=== PATIENT | male | born 1955 | race Caucasian/White ===

== ENCOUNTER 2017-09-25 11:06 | Emergency (ER) | payer BC ==
[2017-09-25 11:46] LABS: ADD MAN DIFF? NO
[2017-09-25 11:51] LABS: BASO # 0.1 x10^3/uL (0.0-0.2); BASO % 1 % (0-3); EOS # 0.2 x10^3/uL (0.0-0.7); EOS % 2 % (0-3); HEMATOCRIT 44.3 % (39.0-53.0); HEMOGLOBIN 14.6 g/dL (13.0-17.5); LYMPH % 21 % (24-48); MEAN CORPUSCULAR HEMOGLOBIN 29 pg (25-35); MEAN CORPUSCULAR HGB CONC 33 g/dL (31-37); MEAN CORPUSCULAR VOLUME 89 fL (79-100); MONO % 11 % (0-9); NEUT # 6.3 x10^3uL (1.8-7.7); NEUT % 65 % (31-73); PLATELET COUNT 172 x10^3/uL (140-400); RED CELL DISTRIBUTION WIDTH 14.3 % (11.5-14.5); WHITE BLOOD COUNT 9.7 x10^3/uL (4.0-11.0)
[2017-09-25 12:13] LABS: ANION GAP 11 (6-14); BLOOD UREA NITROGEN 8 mg/dL (8-26); BUN/CREATININE RATIO 9 (6-20); CALCIUM 8.7 mg/dL (8.5-10.1); CARBON DIOXIDE 26 mmol/L (21-32); CHLORIDE 105 mmol/L (98-107); CREATININE 0.9 mg/dL (0.7-1.3); GFR 86.1; GLUCOSE 91 mg/dL (70-99); POTASSIUM 3.7 mmol/L (3.5-5.1); SODIUM 142 mmol/L (136-145)
[2017-09-25 12:18] LABS: ALBUMIN 3.9 g/dL (3.4-5.0); ALBUMIN/GLOBULIN RATIO 0.9 (1.0-1.7); ALK PHOS 57 U/L (46-116); ALT (SGPT) 33 U/L (16-63); AST (SGOT) 22 U/L (15-37); TOTAL BILIRUBIN 0.7 mg/dL (0.2-1.0); TOTAL PROTEIN 8.1 g/dL (6.4-8.2)
[2017-09-25 12:18] LABS: THYROID STIM HORMONE (TSH) 3.029 uIU/mL (0.358-3.74)
[2017-09-25 18:12] LABS: HEMOGLOBIN A1C 7.6 % (4.8-5.6)
== END 2017-09-25 14:07 | disposition home or self-care (01) ==
LOC: ER 11:06
DX: M79.89 Other specified soft tissue disorders (principal); Z71.1 Person with feared health complaint in whom no diagnosis is made (principal); R41.4 Neurologic neglect syndrome; G98.8 Other disorders of nervous system; E11.9 Type 2 diabetes mellitus without complications
CPT/HCPCS: 36415; 80053; 83036; 84443; 85025; 99284

== ENCOUNTER 2021-05-11 07:42 | Emergency (ER) | payer OTHER ==
[~2021-05-11] VITALS: Ht 175.3 cm; Wt 73.6 kg
[~2021-05-11 07:42] MED LIST: ASPI-886 PO; FLUO20CA20 PO; FLUO20SO2 PEG; GABA300C18 PO; HYDR-2759 PO; INSU100I32 SQ; INSU100I46 SQ; PRED20TA PO
--- NOTE | 2021-05-11 08:09 | PHYS DOC ---
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 Sue said he's no drug dealer." States "the hydrocodone helps with my breathing and calms me down." Patient reports he has been short of breath which has been constant for the past 2 months, has not increased or decreased in severity. Unsure if he's been re-exposed to covid. EMR was reviewed and patient was prescribed 36 tablets of hydrocodone on April 11 upon hospital discharge. Review of Systems: Review of Systems: Constitutional: Denies fever or chills or lack of taste or smell or anorexia Eyes: Denies change in visual acuity. [] HENT: Denies nasal congestion or sore throat. [] Respiratory: Denies cough or hemoptysis Cardiovascular: Denies chest pain or edema. [] GI: Denies nausea, vomiting, or diarrhea. [] : Denies dysuria or hematuria Musculoskeletal: Denies joint pain or leg swelling Integument: Denies rash or diaphoresis Neurologic: Denies headache, focal weakness or sensory changes. [] Endocrine: Denies polyuria or polydipsia. [] Lymphatic: Denies swollen glands. [] Psychiatric: Denies depression or anxiety. [] Heart Score: C/O Chest Pain: No Risk Factors: Risk Factors: DM, Current or recent (<one month) smoker, HTN, HLP, family history of CAD, obesity. Risk Scores: Score 0 - 3: 2.5% MACE over next 6 weeks - Discharge Home Score 4 - 6: 20.3% MACE over next 6 weeks - Admit for Clinical Observation Score 7 - 10: 72.7% MACE over next 6 weeks - Early Invasive Strategies Allergies: Allergies: Allergies Coded Allergies Type Severity Reaction Last Updated Verified I S O L A T I O N *CONTACT* Allergy Unknown 01/11/21 Yes No Known Medication Allergies Allergy Unknown 01/11/21 Yes Physical Exam: PE: Constitutional: Well developed, well nourished, no acute distress, non-toxic appearance. HENT: Normocephalic, atraumatic, Eyes: EOMI, conjunctiva normal, no discharge. Neck: Normal range of motion, supple, old trach scar Cardiovascular: S1/2 present, regular rhythm Lungs & Thorax: Speaking in full sentences, bilateral equal chest rise, no tachypnea or increased work of breathing, 98% on room air Abdomen: soft, no tenderness, Skin: Warm, dry, no erythema, no rash. [] Back: No tenderness, no CVA tenderness. [] Extremities: No tenderness, no cyanosis, no lower extremity edema Neurologic: Alert and oriented X 3, normal motor function, normal sensory function, no focal deficits noted. [] Psychologic: Affect normal, judgement normal, mood normal. [] EKG: EKG: Sinus rhythm 91 bpm, left axis deviation, QTC 469, right bundle branch block with T wave inversion in 2 which could represent strain, no ST ovation ST depression, no active chest pain Radiology/Procedures: Radiology/Procedures: IMAGING REPORT Signed PATIENT: SHAHIDA HORTON ACCOUNT: [id number] : 1955 LOCATION: ER AGE: 65 SEX: M EXAM STATUS: REG ER ORD. PHYSICIAN: MICHELLE DE LOS SANTOS DO REASON: soa PROCEDURE: PORTABLE CHEST 1V Exam performed: One view chest. Indication: Reason: soa / Spl. Instructions: / History: Date of Service: 05/11/2021 8:05 AM Comparison: None available. Single AP upright portable view chest findings: Cardiomediastinal silhouette is within limits of normal. Patchy infiltrates are seen in the left lung base. The bony structures are normal. Impression: Patchy infiltrates left lung base Electronically signed by: Ashley Osorio MD (05/11/2021 8:39 AM) [id number] DICTATED and SIGNED BY: ASHLEY OSORIO MD DATE: 05/11/21 [id number] Course & Med Decision Making: Course & Med Decision Making Pertinent Labs and Imaging studies reviewed. (See chart for details) Concern for left lower lobe pneumonia. Patient speaking in full sentences, afebrile, not requiring any supplemental oxygen. Was discharged from hospital 1 month ago with 04/07/21 CTA chest showing no PE. Given well appearing nature and covid pandemic with no hospital beds, will discharge home on Augmentin and doxycycline in addition to steroids, albuterol and Flovent inhaler. Patient very well-appearing and in no active distress. I do suspect patient's primary concern is pain related. Will discharge home with strict ED return precautions were given for increased work of breathing, chest pain, hemoptysis or strokelike symptoms. Encouraged urgent outpatient follow-up with PMD, pulmonology and pain management. Life-threatening processes were considered but are low suspicion at this time, given history, physical exam and ED workup. Pt was educated on all prescription medications and adverse effects. All patient's questions were answered and pt was stable at time of discharge. Life/limb-threatening differential includes but is not limited to, ACS, dysrhythmia, pneumothorax or hemothorax, pulmonary embolus, pneumonia, bronchoconstriction, pulmonary edema, angioedema, epiglottitis, tracheitis, Sergio's angina, RPA/VEHICLE TRIMMER, anaphylaxis, angioedema, cardiac tamponade or murmurs, pericarditis, myocarditis, poisoning or toxicity, sepsis or autoimmune/neurologic disease. I have spoken with the patient and/or caregivers. I explained the patient's condition, diagnoses and treatment plan based on the information available to me at this time. I have answered the patient and/or caregiver's questions and addressed any concerns. The patient and/or caregivers have a good understanding of patient's diagnosis, condition and treatment plan as can be expected at this point. Vital signs have been stable. Patient's condition is stable and appropriate for discharge from the emergency department. Patient will pursue further outpatient evaluation with primary care physician or other designated or consulting physician as outlined in the discharge instructions. The patient and/or caregivers are agreeable to this plan of care and follow-up instructions have been explained in detail. The patient and/or caregivers have received these instructions in written form and have expressed an understanding of the discharge instructions. The patient and/or caregivers are aware that any significant change of condition or worsening of symptoms should prompt immediate return to this or the closest emergency department or call to 911. Christina Disclaimer: Christina Disclaimer: This electronic medical record was generated, in whole or in part, using a voice recognition dictation system. Departure Departure Impression: Primary Impression: Chronic dyspnea Additional Impression: Left lower lobe pneumonia Disposition: 01 HOME / SELF CARE / HOMELESS Condition: STABLE Referrals: NO PCP (PCP) Follow-up with your primary care physician in 24 to 48 hours OR FOLLOW UP WITH FAMILY MEDICINE: [address] [place] [address] Patient Instructions: Pneumomediastinum, Shortness of Breath Additional Instructions: FOLLOW UP WITH PULMONOLOGY: FOR DEFINITIVE MANAGEMENT of chronic [facility] [address] [place] [address] FOLLOW UP WITH PAIN MANAGEMENT: FOR DEFINITIVE MANAGEMENT [facility] [address], [address] [place] [address] EMERGENCY DEPARTMENT GENERAL DISCHARGE INSTRUCTIONS Thank you for coming to [facility] Emergency Department (ED) today and trusting us with you care. We trust that you had a positive experience in our Emergency Department. If you wish to speak to the department management, you may call the Director at [phone]. YOUR FOLLOW UP INSTRUCTIONS ARE FOLLOWS: 1. Do you have a private Doctor? If you do not have a private doctor, please ask for a resource list of physicians or clinics that may be able to assist you with follow up care. ADDITIONAL INSTRUCTIONS AND INFORMATION: 1. Your care today has been supervised by a physician who is specially trained in emergency care. Many problems require more than one evaluation for a complete diagnosis and treatment. We recommend that you schedule your follow up appointment as recommended to ensure complete treatment of you illness or injury. If you are unable to obtain follow up care and continue to have a problem, or if your condition worsens, we recommend that you return to the ED. 2. We are not able to safely determine your condition over the phone nor are we able to give sound medical advice over the phone. For these safety reasons, if you call for medical advice we will ask you to come to the ED for further evaluation. 3. If you have any questions regarding these discharge instructions please call the ED at [phone]. SAFETY INFORMATION: In the interest of safety, wellness, and injury prevention; we encourage you to wear your sealbelt, if you smoke; quite smoking, and we encourage family to use a protective helmet for bicycling and other sporting events that present an increased risk for head injury. IF YOUR SYMPTOMS WORSEN OR NEW SYMPTOMS DEVELOP, OR YOU HAVE CONCERNS ABOUT YOUR CONDITION; OR IF YOUR CONDITION WORSENS WHILE YOU ARE WAITING FOR YOUR FOLLOW UP APPOINTMENT; EITHER CONTACT YOUR PRIMARY CARE DOCTOR, THE PHYSICIAN WHOSE NAME AND NUMBER YOU WERE GIVEN, OR RETURN TO THE ED IMMEDIATELY. Scripts Albuterol Sulfate (VENTOLIN HFA INHALER) 18 Gm Hfa.aer.ad 2 PUFF INH QID for FOR ASTHMA, #1 INHALER 0 Refills Prov: MICHELLE DE LOS SANTOS DO 05/11/21 Fluticasone Propionate (FLOVENT 44MCG HFA) 10.6 Gm Aer.w.adap 2 PUFF IH BID for 30 Days, #1 INHALER 0 Refills Prov: MICHELLE DE LOS SANTOS DO 05/11/21 Prednisone (PREDNISONE) 50 Mg Tablet 1 TAB PO DAILY for 5 Days, #5 TAB Prov: MICHELLE DE LOS SANTOS DO 05/11/21 Doxycycline Hyclate (DOXYCYCLINE HYCLATE) 100 Mg Capsule 1 CAP PO BID for 10 Days, #20 CAP Prov: MICHELLE DE LOS SANTOS DO 05/11/21 Amoxicillin/Potassium Clav (AUGMENTIN 875-125 TABLET) 1 Each Tablet 1 TAB PO Q12HR for 10 Days, #20 TAB Prov: MICHELLE DE LOS SANTOS DO 05/11/21 MICHELLE DE LOS SANTOS DO May 11, 2021 08:09
[2021-05-11] MEDS ORDERED: DEXAMETHASONE SOD PHOS 20 MG/5 ML VIAL. IV ONE (08:15)
[2021-05-11] MEDS ORDERED: IPRATRPIUM/ALBUTEROL 0.5/2.5MG 3 ML NEBU. NEB ONE (08:15)
--- NOTE | 2021-05-11 08:41 | RAD ---
Exam performed: One view chest. Indication: Reason: soa / Spl. Instructions: / History: Date of Service: 05/11/2021 8:05 AM Comparison: None available. Single AP upright portable view chest findings: Cardiomediastinal silhouette is within limits of normal. Patchy infiltrates are seen in the left lung base. The bony structures are normal. Impression: Patchy infiltrates left lung base Electronically signed by: Ashley Osorio MD (05/11/2021 8:39 AM) [id number]
[2021-05-11 08:42] LABS: BASO # 0.1 x10^3/uL (0.0-0.2); BASO % 1 % (0-3); EOS # 0.3 x10^3/uL (0.0-0.7); EOS % 2 % (0-3); HEMATOCRIT 43.2 % (39.0-53.0); HEMOGLOBIN 14.4 g/dL (13.0-17.5); LYMPH # 3.9 x10^3/uL (1.0-4.8); LYMPH % 35 % (24-48); MEAN CORPUSCULAR HEMOGLOBIN 28 pg (25-35); MEAN CORPUSCULAR HGB CONC 33 g/dL (31-37); MEAN CORPUSCULAR VOLUME 85 fL (79-100); MONO % 9 % (0-9); NEUT # 6.1 x10^3/uL (1.8-7.7); NEUT % 53 % (31-73); PLATELET COUNT 260 x10^3/uL (140-400); RED BLOOD COUNT 5.09 x10^6/uL (4.30-5.70); RED CELL DISTRIBUTION WIDTH 14.9 % (11.5-14.5); WHITE BLOOD COUNT 11.4 x10^3/uL (4.0-11.0)
[2021-05-11 08:54] LABS: CALCIUM 9.4 mg/dL (8.5-10.1); CREATININE 0.8 mg/dL (0.7-1.3); GFR 97.6; POTASSIUM 4.9 mmol/L (3.5-5.1)
[2021-05-11 09:00] LABS: ALBUMIN 3.4 g/dL (3.4-5.0); DIRECT BILIRUBIN 0.1 mg/dL (0.0-0.2); TOTAL BILIRUBIN 0.3 mg/dL (0.2-1.0); TOTAL PROTEIN 7.3 g/dL (6.4-8.2)
[2021-05-11] MEDS ORDERED: DOXY100C3 PO (14:04)
[2021-05-11] MEDS ORDERED: AMOX1TAB61 PO (14:04)
[2021-05-11] MEDS ORDERED: FLUT10.6 IH (14:04)
[2021-05-11] MEDS ORDERED: PRED50TA PO (14:04)
[2021-05-11] MEDS ORDERED: VENTOLIN HFA18 GM INH (14:04)
--- NOTE | 2021-05-11 14:12 | EKG ---
[facility] [address] [place] [address] Test Date: 2021-05-11 Test Time: 09:37:59 Pat Name: SHAHIDA HORTON Department: Room: Gender: M Specimen Collector: : 1955 Requested By: MICHELLE DE LOS SANTOS Order Number: [id number] Reading MD: Measurements Intervals [place] Rate: 91 P: 0 NC: 102 QRS: -77 QRSD: 126 T: 30 QT: 380 QTc: 469 Interpretive Statements SINUS RHYTHM ABNORMAL LEFT AXIS DEVIATION RIGHT BUNDLE BRANCH BLOCK RVH WITH REPOLARIZATION ABNORMALITY QRS(T) CONTOUR ABNORMALITY CONSISTENT WITH INFERIOR INFARCT PROBABLY OLD ABNORMAL ECG RI6.02 Compared to ECG 05/11/2021 09:36:07 Left-axis deviation now present Right bundle-branch block now present Right ventricular hypertrophy now present Early repolarization now present Myocardial infarct finding now present
[2021-05-11 14:48] VITALS: BP 132/65
--- NOTE | 2021-05-11 16:16 | NUR ---
IP: Attempted to contact pt concerning covid results. No answer, left a voicemail to return the call.
--- NOTE | 2021-05-12 12:44 | NUR ---
IP: Attempted to contact p a second time. Reached a sister that states pt does not have a phone. As soon as they see him, they will have him call me back.
--- NOTE | 2021-05-14 15:15 | NUR ---
IP: Prieto Dumont, brother of pt, called to get covid results. He is the only contact for pt. Informed him of negative test. He verbalized understanding.
== END 2021-05-11 14:48 | disposition home or self-care (01) ==
LOC: ER 07:42
DX: J18.9 Pneumonia, unspecified organism (principal); Z20.822 Contact with and (suspected) exposure to COVID-19; E11.9 Type 2 diabetes mellitus without complications; Z87.891 Personal history of nicotine dependence; Z91.041 Radiographic dye allergy status
CPT/HCPCS: 36415; 71045; 80048; 80076; 82550; 83605; 83880; 84484; 85025; 87040; 87426; 93005; 94640; 96374; 99285; J1100; U0003; U0005

== ENCOUNTER 2021-05-29 20:58 | Inpatient (IN) | payer OTHER ==
[~2021-05-29] VITALS: Ht 175.3 cm; Wt 75.0 kg
[~2021-05-29 20:58] MED LIST changes: +AMOX1TAB61 PO; +DOXY100C3 PO; +FLUT10.6 IH; +PRED50TA PO; +VENTOLIN HFA18 GM INH
[2021-05-29] MEDS ORDERED: methylPREDNISolone SOD SUCC PF 125 MG/2 ML VIAL. IV ONE (21:30)
[2021-05-29] MEDS ORDERED: fentaNYL PF VIAL 100 MCG/2 ML VIAL IVP ONE (21:30)
[2021-05-29] MEDS ORDERED: IV NORMAL SALINE 1000ML BAG 1,000 ML IV ONE ×2 (21:45→23:00)
--- NOTE | 2021-05-29 21:49 | PHYS DOC ---
Past Medical History Past Medical History: Diabetes-Type II Additional Past Medical Histor: NEUROPATHY,pneumonia Past Surgical History: Cholecystectomy Additional Past Surgical Histo: something in my abd Smoking Status: Former Smoker Additional Information: quit 3 yeaars ago Alcohol Use: None Drug Use: None General Adult EDM: Chief Complaint: SHORTNESS OF BREATH HPI: HPI: Patient is a 65 year old male who presents with states he was hospitalized for Covid back in September and since then he is has shortness of breath. He states the doctor states that there is nothing wrong with his lungs. He states he just cannot breathe and it is getting worse. He is anywhere from 90 to 92% on room air. When he talks he sounds breath sounds. He is tachypneic. He is also complaining of back pain that goes from his cervical spine down to his thoracic spine. He states is gotten worse today. He states out in the waiting room he was pushing a wheelchair and he fell. He states he is just very weak. States he has been that way since he is worse at home. History of diabetes, neuropathy, pneumonia, Covid, quit smoking 3 years ago. Review of Systems: Review of Systems: Constitutional: Denies fever or chills. [] Eyes: Denies change in visual acuity. [] HENT: Denies nasal congestion or sore throat. [] Respiratory: Denies cough or +shortness of breath. [] Cardiovascular: Denies chest pain or edema. [] GI: Denies abdominal pain, nausea, vomiting, bloody stools or diarrhea. [] : Denies dysuria. [] Musculoskeletal: + back pain or denies joint pain. [] Integument: Denies rash. [] Neurologic: Denies headache, focal weakness or sensory changes. [] Endocrine: Denies polyuria or polydipsia. [] Lymphatic: Denies swollen glands. [] Psychiatric: Denies depression or anxiety. [] Heart Score: C/O Chest Pain: No Risk Factors: Risk Factors: DM, Current or recent (<one month) smoker, HTN, HLP, family his tory of CAD, obesity. Risk Scores: Score 0 - 3: 2.5% MACE over next 6 weeks - Discharge Home Score 4 - 6: 20.3% MACE over next 6 weeks - Admit for Clinical Observation Score 7 - 10: 72.7% MACE over next 6 weeks - Early Invasive Strategies Current Medications: Current Medications Medications (Trade) Dose Ordered Sig/Stacy Start Time Stop Time Status Last Admin Dose Admin Fentanyl Citrate (Fentanyl 2ml Vial) 50 mcg 1X ONCE 05/29/21 21:30 05/29/21 21:31 UNV Methylprednisolone Sodium Succinate (SOLU-Medrol 125MG VIAL) 125 mg 1X ONCE 05/29/21 21:30 05/29/21 21:31 UNV Allergies: Allergies: Allergies Coded Allergies Type Severity Reaction Last Updated Verified I S O L A T I O N *CONTACT* Allergy Unknown 01/11/21 Yes No Known Medication Allergies Allergy Unknown 01/11/21 Yes Physical Exam: PE: Constitutional: Well developed, well nourished, no acute distress, non-toxic appearance. [] HENT: Normocephalic, atraumatic, bilateral external ears normal, oropharynx moist, no oral exudates, nose normal. [] Eyes: PERRLA, EOMI, conjunctiva normal, no discharge. [] Neck: Normal range of motion, no tenderness, supple, no stridor. [] Cardiovascular:Heart rate regular rhythm, no murmur [] Lungs & Thorax: Bilateral upper breath sounds clear and lower diminished to auscultation [] Abdomen: Bowel sounds normal, soft, no tenderness, no masses, no pulsatile masses. [] Skin: Warm, dry, no erythema, no rash. [] Back: No tenderness, no CVA tenderness. [] Extremities: No tenderness, no cyanosis, no clubbing, ROM intact, no edema. [] Neurologic: Alert and oriented X 3, normal motor function, normal sensory func tion, no focal deficits noted. [] Psychologic: Affect normal, judgement normal, mood normal. [] Current Patient Data: Vital Signs: Vital Signs Date Time Temp Pulse Resp B/P (MAP) Pulse Ox O2 Delivery O2 Flow Rate FiO2 05/29/21 21:14 98.0 97 28 148/72 (87) 95 Room Air 98.0 EKG: EK and read by Dr. Shankar as sinus tachycardia, right bundle branch block, inverted T wave in V1, V2 V8 [] Radiology/Procedures: Radiology/Procedures: [] Impression: [facility] [address] [place] [address] IMAGING REPORT Signed PATIENT: SHAHIDA HORTON ACCOUNT: [id number] : 1955 LOCATION: ER AGE: 65 SEX: M EXAM STATUS: REG ER ORD. PHYSICIAN: LAKSHMI VENTURA APRN REASON: NECK pain PROCEDURE: CT CERVICAL SPINE WO CONTRAST Study: CT cervical spine without contrast INDICATION: Neck pain. COMPARISON: None. TECHNIQUE: Axial CT imaging of the cervical spine performed without intravenous contrast. Sagittal and coronal reformats were obtained. One or more of the following individualized dose reduction techniques were utilized for this examination: 1. Automated exposure control 2. Adjustment of the mA and/or kV according to patient size 3. Use of iterative reconstruction technique. FINDINGS: No acute fracture is identified throughout the cervical spine. Chronic ligamentum nuchae ossification centered at C4. Ventral osteophytic ridging at multiple levels with some osteophyte discontinuity but without any evidence for acuity. Chronic osseous proliferation at the atlantodental interface. Discogenic arthrosis is most advanced at C6-C7. The largest disc osteophyte complexes at this level as well. Scattered facet arthrosis is mostly mild. Uncovertebral joint hypertrophy greatest at C6-C7. Mild/moderate osseous neural foraminal stenosis bilaterally at C6-C7. Estimated moderate central canal stenosis at C6-C7 but incompletely characterized. Carotid calcified and noncalcified atheromatous plaque. Unremarkable thyroid. IMPRESSION: 1. No acute fracture or traumatic malalignment. 2. Multilevel degenerative changes collectively greatest at C6-C7 where there is estimated moderate central canal stenosis and mild/moderate osseous neural foraminal narrowing. Electronically signed by: LORETTA BRINK MD (05/29/2021 11:04 PM) [facility] DICTATED and SIGNED BY: LORETTA BRINK MD DATE: 05/29/21 [id number] [facility] [address] [place], [place] [id number] IMAGING REPORT Signed PATIENT: SHAHIDA HORTON ACCOUNT: [id number] : 1955 LOCATION: ER AGE: 65 SEX: M EXAM STATUS: REG ER ORD. PHYSICIAN: LAKSHMI VENTURA APRN REASON: soa PROCEDURE: PORTABLE CHEST 1V Exam: Chest one view INDICATION: Short of air TECHNIQUE: Frontal view of the chest Comparisons: 05/11/2020 FINDINGS: The cardiomediastinal silhouette and pulmonary vessels are within normal limits. Patchy left basilar airspace disease. No pleural effusion IMPRESSION: Patchy left basilar airspace disease, may be infectious or inflammatory in etiology Electronically signed by: Julián Briceno MD (05/29/2021 11:04 PM) [facility] DICTATED and SIGNED BY: JULIÁN BRICENO MD DATE: 05/29/21 [id number] [facility] [address] [place] [address] IMAGING REPORT Signed PATIENT: SHAHIDA HORTON ACCOUNT: [id number] : 1955 LOCATION: ER AGE: 65 SEX: M EXAM STATUS: REG ER ORD. PHYSICIAN: LAKSHMI VENTURA APRN REASON: SOA, pain PROCEDURE: CT ANGIOGRAPHY CHEST STUDY: 1. CT CHEST WITH CONTRAST-PULMONARY ANGIOGRAM 2. CT THORACIC SPINE-RECONSTRUCTIONS 3. CT LUMBAR SPINE WITHOUT CONTRAST History: Back pain. Shortness of air. Pulmonary embolism. Comparison: Most recent CT chest 04/07/2021 Technique: Helical CT of the chest performed after the administration of 100 cc Omnipaque 350 intravenous contrast and timed for angiographic evaluation of the pulmonary arteries per PE protocol. Coronal and sagittal 3D MIP reformations were obtained. The obtained data was utilized to reconstruct smaller [id number] images through the thoracic spine. Dedicated CT imaging of the lumbar spine performed as well without dedicated contrast administration. One or more of the following individualized dose reduction techniques were utilized for this examination: 1. Automated exposure control 2. Adjustment of the mA and/or kV according to patient size 3. Use of iterative reconstruction technique. Findings: CHEST: Pulmonary Arteries: No main, lobar or segmental pulmonary embolism. The subsegmental pulmonary arteries are incompletely evaluated at several locations. Main pulmonary artery caliber is within normal limits. Heart/Systemic Vasculature: Multifocal calcified and noncalcified atheromatous plaque. No aortic aneurysm or dissection. No flow-limiting stenosis at the great vessel origins. Mild stenosis of the left subclavian artery 2.5 cm distal to the origin on account of noncalcified plaque. Mediastinum: Several mediastinal and hilar lymph nodes have mildly increased in size from the comparison. Cement Truck Driver right hilar lymph node on image 66 series 3 now measuring 1.2 cm short axis compared to 1 cm. Lungs: Emphysema and scattered fibrosis with a basilar predominance. The previously seen hydropneumothorax on the left has resolved. The pleural-based opacity at the posterior/lateral aspect of the left lower lobe superior segment has decreased in thickness, image 60 series 3. Increased ill-defined opacities at the basilar left lower lobe. Neck/Axilla/Body Wall: No axillary adenopathy. Similar degree of subcutaneous fat reticulation. Upper Abdomen: Status post cholecystectomy. Upper limits of normal size of the spleen. Bones: Thoracic spine findings discussed separately. The visualized ribs are intact. Miscellaneous: None. THORACIC SPINE: No concerning vertebral body height loss. Intact posterior elements. No advanced thoracic spondylosis. No severe osseous neural foraminal stenosis. Incompletely characterized disc bulges at T10-T11 and T11-T12 without evidence for more than mild central canal stenosis. LUMBAR SPINE: L4 limbus vertebra. No acute fracture or focally aggressive osseous lesion. Discogenic arthrosis with mild disc space height loss at L5-S1 and vacuum phenomenon. Facet arthrosis is mild at the lower lumbar spine. Osseous neural foraminal narrowing greatest on the left at L5-S1 and appearing moderate in severity. No evidence for significant central canal stenosis. A few mildly prominent retroperitoneal lymph nodes measuring up to 1 cm short axis favored most likely reactive in the absence of a known malignancy. IMPRESSION: CHEST: 1. No main, lobar or segmental pulmonary embolism. 2. Redemonstration of emphysema and basilar predominant subpleural fibrosis. Increased ill-defined airspace opacities at the basilar left lower lobe from the 04/07/2021 comparison which is nonspecific but could be related to an atypical infectious process in the appropriate clinical setting. Assuming the patient meets screening guidelines annual low dose CT is recommended. 3. A few mediastinal and hilar lymph nodes have mildly increased in size from the prior. A reactive etiology is favored but attention on follow-up is recommended. THORACIC SPINE: 1. No acute osseous abnormality. 2. Mild degenerative changes. No evidence for severe central canal or neural foraminal stenosis. LUMBAR SPINE: 1. No acute osseous abnormality. 2. Moderate osseous neural foraminal stenosis on the left at L5-S1. No evidence for significant central canal stenosis. Electronically signed by: LORETTA BRINK MD (05/29/2021 11:24 PM) [facility] DICTATED and SIGNED BY: LORETTA BRINK MD DATE: 05/29/21 [id number] 0 Course & Med Decision Making: Course & Med Decision Making Pertinent Labs and Imaging studies reviewed. (See chart for details) See HPI. Alert and oriented x4. Ambulatory with a steady gait. Speaks in 1-2 word sentences. Tachypneic. Lungs are clear in upper lobes but diminished in lower lobes. Skin pink warm and dry. Vital signs are stable. Cap refill less than 2 seconds. Focal bony spinal tenderness with palpation. No bruising or step-off. No loss of bowel bladder. No saddle paresthesia. Moving all of his extremities. No sensation loss that is new for him. States he has been out of all of his medications including his gabapentin. Opacity has increased in the left lung. Patient is very anxious. White count is high. Lactic acid elevated. [] Dragon Disclaimer: Dragon Disclaimer: This electronic medical record was generated, in whole or in part, using a voice recognition dictation system. Departure Departure Impression: Primary Impression: COVID-19 ying hong Additional Impressions: Pneumonia Qualified Codes: J18.9 - Pneumonia, unspecified organism SIRS (systemic inflammatory response syndrome) Disposition: ADMITTED INPATIENT Admitting Physician: HIMS Condition: STABLE Referrals: NO PCP (PCP) LAKSHMI VENTURA MANUFACTURING SUPPORT ENGINEER May 29, 2021 21:49
[2021-05-29 21:52] LABS: BASE EXCESS COOX -1 mmol/L (-3-3); HCO3 COOX 23 mmol/L (21-28); METHEMOGLOBIN 0.6 % (0.0-1.9); OXYHEMOGLOBIN 91.1 %; PCO2 COOX 36 mmHg (35-46); PO2 COOX 62 mmHg (65-108); SAT O2 COOX 92 % (92-99)
[2021-05-29 22:01] LABS: BASO # 0.1 x10^3/uL (0.0-0.2); BASO % 1 % (0-3); EOS % 0 % (0-3); HEMOGLOBIN 13.6 g/dL (13.0-17.5); LYMPH # 2.2 x10^3/uL (1.0-4.8); LYMPH % 11 % (24-48); MEAN CORPUSCULAR HEMOGLOBIN 29 pg (25-35); MEAN CORPUSCULAR HGB CONC 34 g/dL (31-37); MEAN CORPUSCULAR VOLUME 84 fL (79-100); MONO # 1.4 x10^3/uL (0.0-1.1); MONO % 7 % (0-9); NEUT # 16.1 x10^3/uL (1.8-7.7); NEUT % 81 % (31-73); PLATELET COUNT 168 x10^3/uL (140-400); RED BLOOD COUNT 4.77 x10^6/uL (4.30-5.70); RED CELL DISTRIBUTION WIDTH 14.5 % (11.5-14.5); WHITE BLOOD COUNT 19.9 x10^3/uL (4.0-11.0)
[2021-05-29 22:14] LABS: CALCIUM 9.5 mg/dL (8.5-10.1); GFR 75.5; POTASSIUM 4.1 mmol/L (3.5-5.1)
[2021-05-29] MEDS ORDERED: IPRATRPIUM/ALBUTEROL 0.5/2.5MG 3 ML NEBU. NEB ONE (22:15)
[2021-05-29] MEDS ORDERED: ALBUTEROL SULFATE 2.5 MG/3 ML NEBU. NEB ONE (22:15)
[2021-05-29 22:20] LABS: ALBUMIN 3.4 g/dL (3.4-5.0); ALBUMIN/GLOBULIN RATIO 0.9 (1.0-1.7); TOTAL BILIRUBIN 1.1 mg/dL (0.2-1.0); TOTAL PROTEIN 7.3 g/dL (6.4-8.2)
[2021-05-29] MEDS ORDERED: PIPERACILLIN/TAZOBACTAM 3.375 GM in IV NORMAL SALINE 50ML 50 ML IV ONE (22:30)
[2021-05-29] MEDS ORDERED: CONTRAST GIVEN. MC PRN (22:45)
[2021-05-29] MEDS ORDERED: IOHEXOL 350 MG/ML 100 ML VIAL. IV ONE (22:45)
[2021-05-29 22:57] LABS: % LYMPHS 9 % (24-48); % MONOS 4 % (0-10); % SEGS 87 % (35-66); PLT ESTIMATE ADEQUATE (ADEQUATE)
--- NOTE | 2021-05-29 23:06 | RAD ---
Exam: Chest one view INDICATION: Short of air TECHNIQUE: Frontal view of the chest Comparisons: 05/11/2020 FINDINGS: The cardiomediastinal silhouette and pulmonary vessels are within normal limits. Patchy left basilar airspace disease. No pleural effusion IMPRESSION: Patchy left basilar airspace disease, may be infectious or inflammatory in etiology Electronically signed by: Julián Ceballos MD (05/29/2021 11:04 PM) [facility]
--- NOTE | 2021-05-29 23:06 | RAD ---
Study: CT cervical spine without contrast INDICATION: Neck pain. COMPARISON: None. TECHNIQUE: Axial CT imaging of the cervical spine performed without intravenous contrast. Sagittal an d coronal reformats were obtained. One or more of the following individualized dose reduction techniques were utilized for this examinat ion: 1. Automated exposure control 2. Adjustment of the mA and/or kV according to patient size 3. Use of iterative reconstruction technique. FINDINGS: No acute fracture is identified throughout the cervical spine. Chronic ligamentum nuchae ossification centered at C4. Ventral osteophytic ridging at multiple levels with some osteophyte discontinuity bu t without any evidence for acuity. Chronic osseous proliferation at the atlantodental interface. Discogenic arthrosis is most advanced at C6-C7. The largest disc osteophyte complexes at this level a s well. Scattered facet arthrosis is mostly mild. Uncovertebral joint hypertrophy greatest at C6-C7. Mild/moderate osseous neural foraminal stenosis bilaterally at C6-C7. Estimated moderate central shyanne l stenosis at C6-C7 but incompletely characterized. Carotid calcified and noncalcified atheromatous plaque. Unremarkable thyroid. IMPRESSION: 1. No acute fracture or traumatic malalignment. 2. Multilevel degenerative changes collectively greatest at C6-C7 where there is estimated moderate central canal stenosis and mild/moderate osseous neural foraminal narrowing. Electronically signed by: LORETTA BRINK MD (05/29/2021 11:04 PM) [facility]
--- NOTE | 2021-05-29 23:15 | EKG ---
[facility] [address] [place] [address] Test Date: 2021-05-29 Test Time: 21:18:40 Pat Name: SHAHIDA HOTRON Department: Room: Gender: M Supervisor Record Press: : 1955 Requested By: LAKSHMI VENTURA Order Number: [id number] Reading MD: Jono Rivers MD Measurements Intervals [place] Rate: 102 P: 62 MI: 128 QRS: -83 QRSD: 124 T: 23 QT: 344 QTc: 453 Interpretive Statements SINUS TACHYCARDIA RIGHT BUNDLE BRANCH BLOCK RVH WITH REPOLARIZATION ABNORMALITY QRS(T) CONTOUR ABNORMALITY CONSIDER ANTEROSEPTAL MYOCARDIAL DAMAGE CONSISTENT WITH INFERIOR INFARCT PROBABLY OLD Electronically Signed On 05-31-2021 9:07:29 CDT by Jono Rivers MD
--- NOTE | 2021-05-29 23:26 | RAD ---
STUDY: 1. CT CHEST WITH CONTRAST-PULMONARY ANGIOGRAM 2. CT THORACIC SPINE-RECONSTRUCTIONS 3. CT LUMBAR SPINE WITHOUT CONTRAST History: Back pain. Shortness of air. Pulmonary embolism. Comparison: Most recent CT chest 04/07/2021 Technique: Helical CT of the chest performed after the administration of 100 cc Omnipaque 350 intrav enous contrast and timed for angiographic evaluation of the pulmonary arteries per PE protocol. Coron al and sagittal 3D MIP reformations were obtained. The obtained data was utilized to reconstruct smal ler muoud-fq-uidm images through the thoracic spine. Dedicated CT imaging of the lumbar spine perform ed as well without dedicated contrast administration. One or more of the following individualized dose reduction techniques were utilized for this examinat ion: 1. Automated exposure control 2. Adjustment of the mA and/or kV according to patient size 3. Use of iterative reconstruction technique. Findings: CHEST: Pulmonary Arteries: No main, lobar or segmental pulmonary embolism. The subsegmental pulmonary arteri es are incompletely evaluated at several locations. Main pulmonary artery caliber is within normal li mits. Heart/Systemic Vasculature: Multifocal calcified and noncalcified atheromatous plaque. No aortic aneu rysm or dissection. No flow-limiting stenosis at the great vessel origins. Mild stenosis of the left subclavian artery 2.5 cm distal to the origin on account of noncalcified plaque. Mediastinum: Several mediastinal and hilar lymph nodes have mildly increased in size from the compari son. Wind Turbine Mechanic right hilar lymph node on image 66 series 3 now measuring 1.2 cm short axis dwayne red to 1 cm. Lungs: Emphysema and scattered fibrosis with a basilar predominance. The previously seen hydropneumot horax on the left has resolved. The pleural-based opacity at the posterior/lateral aspect of the left lower lobe superior segment has decreased in thickness, image 60 series 3. Increased ill-defined opa cities at the basilar left lower lobe. Neck/Axilla/Body Wall: No axillary adenopathy. Similar degree of subcutaneous fat reticulation. Upper Abdomen: Status post cholecystectomy. Upper limits of normal size of the spleen. Bones: Thoracic spine findings discussed separately. The visualized ribs are intact. Miscellaneous: None. THORACIC SPINE: No concerning vertebral body height loss. Intact posterior elements. No advanced thoracic spondylosis . No severe osseous neural foraminal stenosis. Incompletely characterized disc bulges at T10-T11 and T11-T12 without evidence for more than mild central canal stenosis. LUMBAR SPINE: L4 limbus vertebra. No acute fracture or focally aggressive osseous lesion. Discogenic arthrosis with mild disc space height loss at L5-S1 and vacuum phenomenon. Facet arthrosis is mild at the lower lum bar spine. Osseous neural foraminal narrowing greatest on the left at L5-S1 and appearing moderate in severity. No evidence for significant central canal stenosis. A few mildly prominent retroperitoneal lymph nodes measuring up to 1 cm short axis favored most likel y reactive in the absence of a known malignancy. IMPRESSION: CHEST: 1. No main, lobar or segmental pulmonary embolism. 2. Redemonstration of emphysema and basilar predominant subpleural fibrosis. Increased ill-defined a irspace opacities at the basilar left lower lobe from the 04/07/2021 comparison which is nonspecific b ut could be related to an atypical infectious process in the appropriate clinical setting. Assuming t he patient meets screening guidelines annual low dose CT is recommended. 3. A few mediastinal and hilar lymph nodes have mildly increased in size from the prior. A reactive etiology is favored but attention on follow-up is recommended. THORACIC SPINE: 1. No acute osseous abnormality. 2. Mild degenerative changes. No evidence for severe central canal or neural foraminal stenosis. LUMBAR SPINE: 1. No acute osseous abnormality. 2. Moderate osseous neural foraminal stenosis on the left at L5-S1. No evidence for significant centr al canal stenosis. Electronically signed by: LORETTA BRINK MD (05/29/2021 11:24 PM) [facility]
[2021-05-29] MEDS ORDERED: ACETAMINOPHEN 325 MG TABLET. PO PRN (23:30)
[2021-05-29 23:39] LABS: BILIRUBIN,URINE NEGATIVE (NEG); COLOR,URINE YELLOW; NITRITE,URINE NEGATIVE (NEG); PROTEIN,URINE NEGATIVE (NEG-TRACE); UROBILINOGEN,URINE 0.2 mg/dL (0.2 mg/dL)
[2021-05-29 23:51] LABS: CLARITY,URINE CLEAR
[2021-05-29 23:52] LABS: BACTERIA,URINE 0 /HPF (0-FEW); RBC,URINE 0 /HPF (0-2); SPERM,URINE PRESENT /HPF; WBC,URINE RARE /HPF (0-4)
[2021-05-30] VITALS (7 sets, daily range): BP systolic 103–128; BP diastolic 6–68
--- NOTE | 2021-05-30 01:00 | NUR ---
The patient, SHAHIDA HORTON, 65 y/o, M admitted by ANJANA LUCIA MD, was given written information regarding hospital policies, unit procedures and contact persons. Valuables were checked and left with him.
[2021-05-30] MEDS ORDERED: ELECTROLYTE (NON-ICU) PROTOCOL. MC PRN (08:15)
[2021-05-30] MEDS ORDERED: ONDANSETRON PF 4 MG/2 ML VIAL. IVP PRN (08:15)
[2021-05-30] MEDS ORDERED: ACETAMINOPHEN 325 MG TABLET. PO PRN (08:15)
[2021-05-30] MEDS ORDERED: CALCIUM CARBONATE 500 MG TAB.CHEW PO PRN (08:15)
[2021-05-30] MEDS ORDERED: oxyCODONE/APAP 5/325 1 TAB TABLET PO PRN (08:15)
[2021-05-30] MEDS ORDERED: DEXTROSE 50% 25 GM / 50ML DISP.SYRIN. IV PRN (08:15)
--- NOTE | 2021-05-30 08:18 | PDOC1 ---
History and Physical Date of Service: DOS: DATE: 05/30/21 TIME: 08:18 Chief Complaint: Problems: (1) COVID-19 long hauler (2) SIRS (systemic inflammatory response syndrome) (3) Pneumonia (4) Type 2 diabetes mellitus without complications History of Present Illness: Reason for Visit: Shortness of breath HPI: Patient is a 65-year-old male who presented to the hospital overnight due to shortness of breath with increased cough and sputum production.. Was hospitalized with Covid in September. Still having quite a few symptoms. Reports he came in because he feels like he is unable to catch his breath most of the time. Saturations aware and in the low 90s on presentation to the emergency room. Reports that he is overall just feeling very weak as well ever since he had Covid. Does not feel as if he has really recovered overall. Patient during Covid admission required a chest tube due to hydropneumothorax. When evaluated this morning patient was denying headache, vision changes, chest pain, abdominal pain. Past Medical/Surgical History: PMH/PSH: COVID-19 viral pneumonia, respiratory failure, ARDS, hydropneumothorax, status post chest tube placement. He has had previous trach. He was decannulated. He has underlying COPD, emphysematous, type 2 diabetes, previous PEG. Allergies: Allergies: Coded Allergies: I S O L A T I O N *CONTACT* (Verified Allergy, Unknown, 01/11/21) mrsa No Known Medication Allergies (Verified Allergy, Unknown, 01/11/21) Family History: Family History: Noncontributory Social History: Social History: Former smoker, denies alcohol drug use Current Medications: Current Medications Current Medications Methylprednisolone Sodium Succinate (SOLU-Medrol 125MG VIAL) 125 mg 1X ONCE IV Last administered on 05/29/21at 21:59; Start 05/29/21 at 21:30; Stop 05/29/21 at 21:31; Status DC Fentanyl Citrate (Fentanyl 2ml Vial) 50 mcg 1X ONCE IVP Last administered on 05/29/21at 21:59; Start 05/29/21 at 21:30; Stop 05/29/21 at 21:31; Status DC Sodium Chloride 1,000 ml @ 1,000 mls/hr 1X ONCE IV Last administered on 05/29/21at 21:59; Start 05/29/21 at 21:45; Stop 05/29/21 at 22:44; Status DC Albuterol Sulfate (Ventolin Neb Soln) 2.5 mg 1X ONCE NEB ; Start 05/29/21 at 22:15; Stop 05/29/21 at 22:08; Status DC Albuterol/ Ipratropium (Duoneb) 3 ml 1X ONCE NEB Last administered on 05/29/21at 22:09; Start 05/29/21 at 22:15; Stop 05/29/21 at 22:16; Status DC Piperacillin Sod/ Tazobactam Sod 3.375 gm/Sodium Chloride 50 ml @ 100 mls/hr 1X ONCE IV Last administered on 05/29/21at 23:20; Start 05/29/21 at 22:30; Stop 05/29/21 at 22:59; Status DC Iohexol (Omnipaque 350 Mg/ml) 100 ml 1X ONCE IV Last administered on 05/29/21at 22:48; Start 05/29/21 at 22:45; Stop 05/29/21 at 22:46; Status DC Info (CONTRAST GIVEN -- Rx MONITORING) 1 each PRN DAILY PRN MC SEE COMMENTS; Start 05/29/21 at 22:45; Stop 05/31/21 at 22:44 Sodium Chloride 1,000 ml @ 1,000 mls/hr 1X ONCE IV Last administered on 05/29/21at 23:21; Start 05/29/21 at 23:00; Stop 05/29/21 at 23:59; Status DC Fentanyl Citrate (Fentanyl 2ml Vial) 50 mcg PRN Q1HR PRN IVP PAIN; Start 05/29/21 at 23:30; Stop 05/30/21 at 23:29 Acetaminophen (Tylenol) 650 mg PRN Q4HRS PRN PO FEVER > 100.3'F; Start 05/29/21 at 23:30; Stop 05/30/21 at 23:29 Aspirin (Ecotrin) 81 mg DAILYWBKFT PO ; Start 05/31/21 at 08:00 Fluoxetine HCl (PROzac) 20 mg DAILY PO ; Start 05/30/21 at 09:00 Gabapentin (Neurontin) 300 mg TID PO ; Start 05/30/21 at 09:00 Ondansetron HCl (Zofran) 4 mg PRN Q6HRS PRN IVP NAUSEA/VOMITING; Start 05/30/21 at 08:15; Status UNV Calcium Carbonate/ Glycine (Tums) 500 mg PRN Q3HRS PRN PO UPSET STOMACH; Start 05/30/21 at 08:15; Status UNV Zolpidem Tartrate (Ambien) 5 mg PRN QHS PRN PO INSOMNIA, MAY REPEAT IN 1HR; Start 05/30/21 at 08:15; Status UNV Info (Non-Icu Electrolyte Protocol) 1 ea PRN DAILY PRN MC SEE COMMENTS; Start 05/30/21 at 08:15; Status UNV Oxycodone/ Acetaminophen (Percocet 5/325) 1 tab PRN Q4HRS PRN PO MILD PAIN, 1ST CHOICE; Start 05/30/21 at 08:15; Status UNV Oxycodone/ Acetaminophen (Percocet 5/325) 2 tab PRN Q4HRS PRN PO MODERATE PAIN, SEVERE PAIN; Start 05/30/21 at 08:15; Status UNV Acetaminophen (Tylenol) 650 mg PRN Q6HRS PRN PO Headaches, Temp > 101.5F; Start 05/30/21 at 08:15; Status UNV Senna/Docusate Sodium (Senna Plus) 1 tab BID PO ; Start 05/30/21 at 09:00; Status UNV Enoxaparin Sodium (Lovenox 40mg Syringe) 40 mg Q24H SQ ; Start 05/30/21 at 08:15; Status UNV Insulin Glargine (Lantus Syringe) 10 unit QHS SQ ; Start 05/30/21 at 21:00; Status UNV Insulin Human Lispro (HumaLOG) 0-7 UNITS TIDWMEALS SQ ; Start 05/30/21 at 12:00; Status UNV Dextrose (Dextrose 50%-Water Syringe) 12.5 gm PRN Q15MIN PRN IV SEE COMMENTS; Start 05/30/21 at 08:15; Status UNV Active Scripts Active Ventolin Hfa Inhaler (Albuterol Sulfate) 18 Gm Hfa.aer.ad 2 Puff INH QID Flovent 44MCG Hfa (Fluticasone Propionate) 10.6 Gm Aer.w.adap 2 Puff IH BID 30 Days Prednisone 50 Mg Tablet 1 Tab PO DAILY 5 Days Doxycycline Hyclate 100 Mg Capsule 1 Cap PO BID 10 Days Augmentin 875-125 Tablet (Amoxicillin/Potassium Clav) 1 Each Tablet 1 Tab PO Q12HR 10 Days Insulin Lispro Kwikpen U-100 (Insulin Lispro) 100 Unit/1 Ml Insuln.pen 3 Unit SQ TIDWMEALS 30 Days Basaglar Kwikpen U-100 (Insulin Glargine,Hum.rec.anlog) 100 Unit/1 Ml Insuln.pen 10 Unit SQ QHS 30 Days Prednisone 20 Mg Tablet 20 Mg PO DAILY 5 Days Gabapentin 300 Mg Capsule 300 Mg PO TID 30 Days Aspirin Ec (Aspirin) 81 Mg Tablet.dr 81 Mg PO DAILYWBKFT 30 Days Fluoxetine Hcl 20 Mg Capsule 20 Mg PO DAILY 30 Days Hydrocodone-Acetamin 5-325 mg (Hydrocodone/Acetaminophen) 1 Each Tablet 1 Each PO Q4-6HRS 6 Days ROS: Review of Systems Review of System Negative unless noted in HPI Physical Exam: Vital Signs: Vital Signs Date Time Temp Pulse Resp B/P (MAP) Pulse Ox O2 Delivery O2 Flow Rate FiO2 05/30/21 07:00 97.5 76 20 125/68 (87) 96 Room Air 97.5 Physcial Exam: GEN: No apparent distress. Alert and oriented HEENT: Normal cephalic, atraumatic, external auditory canals are patent MUSCULOSKELETAL: Well developed , well nourished, good range of motion ENDOCRINE: No thyromegaly was palpated LYMPHATICS: No cervical chain or axillary nodes were noted HEMATOPOIETIC: No bruising NECK: Supple, no JVD, no thyromegaly was noted LUNGS: Coarse and respirations mildly labored. No apparent wheezing. HEART: RRR, S1, S2 present. Peripheral pulses intact, no obvious murmurs noted ABDOMEN: Soft, nontender. Positive bowel sounds, no organomegaly, normal bowel sounds EXTREMITIES: Without clubbing, cyanosis, or edema. Pedal pulses intact. Negative Homans sign NEUROLOGIC: Normal speech and tone. A&O x 3, moves all extremities, no obvious focal deficits PSYCHIATRIC: Normal affect, normal mood. Stable SKIN: No ulcerations or rashes, good skin turgor, no jaundice VASCULAR: Good capillary refill, neurovascular bundle appears to be intact Labs: Labs: Laboratory Tests Test 05/29/21 21:35 05/29/21 21:53 05/29/21 23:34 05/30/21 01:55 White Blood Count 19.9 x10^3/uL (4.0-11.0) Red Blood Count 4.77 x10^6/uL (4.30-5.70) Hemoglobin 13.6 g/dL (13.0-17.5) Hematocrit 40.0 % (39.0-53.0) Mean Corpuscular Volume 84 fL (79-100) Mean Corpuscular Hemoglobin 29 pg (25-35) Mean Corpuscular Hemoglobin Concent 34 g/dL (31-37) Red Cell Distribution Width 14.5 % (11.5-14.5) Platelet Count 168 x10^3/uL (140-400) Neutrophils (%) (Auto) 81 % (31-73) Lymphocytes (%) (Auto) 11 % (24-48) Monocytes (%) (Auto) 7 % (0-9) Eosinophils (%) (Auto) 0 % (0-3) Basophils (%) (Auto) 1 % (0-3) Neutrophils # (Auto) 16.1 x10^3/uL (1.8-7.7) Lymphocytes # (Auto) 2.2 x10^3/uL (1.0-4.8) Monocytes # (Auto) 1.4 x10^3/uL (0.0-1.1) Eosinophils # (Auto) 0.0 x10^3/uL (0.0-0.7) Basophils # (Auto) 0.1 x10^3/uL (0.0-0.2) Segmented Neutrophils % 87 % (35-66) Lymphocytes % 9 % (24-48) Monocytes % 4 % (0-10) Platelet Estimate Adequate (ADEQUATE) Sodium Level 139 mmol/L (136-145) Potassium Level 4.1 mmol/L (3.5-5.1) Chloride Level 102 mmol/L (98-107) Carbon Dioxide Level 28 mmol/L (21-32) Anion Gap 9 (6-14) Blood Urea Nitrogen 13 mg/dL (8-26) Creatinine 1.0 mg/dL (0.7-1.3) Estimated GFR (Cockcroft-Gault) 75.5 BUN/Creatinine Ratio 13 (6-20) Glucose Level 129 mg/dL (70-99) Lactic Acid Level 2.2 mmol/L (0.4-2.0) 3.8 mmol/L (0.4-2.0) Calcium Level 9.5 mg/dL (8.5-10.1) Total Bilirubin 1.1 mg/dL (0.2-1.0) Aspartate Amino Transf (AST/SGOT) 23 U/L (15-37) Alanine Aminotransferase (ALT/SGPT) 40 U/L (16-63) Alkaline Phosphatase 64 U/L (46-116) Troponin I Quantitative < 0.017 ng/mL (0.000-0.055) JM-Pwr-U-Type Natriuretic Peptide 95 pg/mL (0-124) Total Protein 7.3 g/dL (6.4-8.2) Albumin 3.4 g/dL (3.4-5.0) Albumin/Globulin Ratio 0.9 (1.0-1.7) O2 Saturation 92 % (92-99) Arterial Blood pH 7.42 (7.35-7.45) Arterial Blood pCO2 at Patient Temp 36 mmHg (35-46) Arterial Blood pO2 at Patient Temp 62 mmHg (65-108) Arterial Blood HCO3 23 mmol/L (21-28) Arterial Blood Base Excess -1 mmol/L (-3-3) Oxyhemoglobin 91.1 % Methemoglobin 0.6 % (0.0-1.9) Carbon Monoxide, Quantitative 0.0 % (0.0-1.9) FiO2 21 Urine Collection Type Unknown Urine Color Yellow Urine Clarity Clear Urine pH 6.0 (<5.0-8.0) Urine Specific [place] >=1.030 (1.000-1.030) Urine Protein Negative mg/dL (NEG-TRACE) Urine Glucose (UA) 250 mg/dL (NEG) Urine Ketones (Stick) Negative mg/dL (NEG) Urine Blood Negative (NEG) Urine Nitrite Negative (NEG) Urine Bilirubin Negative (NEG) Urine Urobilinogen Dipstick 0.2 mg/dL (0.2 mg/dL) Urine Leukocyte Esterase Negative (NEG) Urine RBC 0 /HPF (0-2) Urine WBC Rare /HPF (0-4) Urine Squamous Epithelial Cells Occ /LPF Urine Bacteria 0 /HPF (0-FEW) Urine Sperm Present /HPF Test 05/30/21 07:11 Glucose (Fingerstick) 364 mg/dL (70-99) Laboratory Tests Test 05/29/21 21:35 05/29/21 21:53 05/29/21 23:34 05/30/21 01:55 White Blood Count 19.9 x10^3/uL (4.0-11.0) Red Blood Count 4.77 x10^6/uL (4.30-5.70) Hemoglobin 13.6 g/dL (13.0-17.5) Hematocrit 40.0 % (39.0-53.0) Mean Corpuscular Volume 84 fL (79-100) Mean Corpuscular Hemoglobin 29 pg (25-35) Mean Corpuscular Hemoglobin Concent 34 g/dL (31-37) Red Cell Distribution Width 14.5 % (11.5-14.5) Platelet Count 168 x10^3/uL (140-400) Neutrophils (%) (Auto) 81 % (31-73) Lymphocytes (%) (Auto) 11 % (24-48) Monocytes (%) (Auto) 7 % (0-9) Eosinophils (%) (Auto) 0 % (0-3) Basophils (%) (Auto) 1 % (0-3) Neutrophils # (Auto) 16.1 x10^3/uL (1.8-7.7) Lymphocytes # (Auto) 2.2 x10^3/uL (1.0-4.8) Monocytes # (Auto) 1.4 x10^3/uL (0.0-1.1) Eosinophils # (Auto) 0.0 x10^3/uL (0.0-0.7) Basophils # (Auto) 0.1 x10^3/uL (0.0-0.2) Segmented Neutrophils % 87 % (35-66) Lymphocytes % 9 % (24-48) Monocytes % 4 % (0-10) Platelet Estimate Adequate (ADEQUATE) Sodium Level 139 mmol/L (136-145) Potassium Level 4.1 mmol/L (3.5-5.1) Chloride Level 102 mmol/L (98-107) Carbon Dioxide Level 28 mmol/L (21-32) Anion Gap 9 (6-14) Blood Urea Nitrogen 13 mg/dL (8-26) Creatinine 1.0 mg/dL (0.7-1.3) Estimated GFR (Cockcroft-Gault) 75.5 BUN/Creatinine Ratio 13 (6-20) Glucose Level 129 mg/dL (70-99) Lactic Acid Level 2.2 mmol/L (0.4-2.0) 3.8 mmol/L (0.4-2.0) Calcium Level 9.5 mg/dL (8.5-10.1) Total Bilirubin 1.1 mg/dL (0.2-1.0) Aspartate Amino Transf (AST/SGOT) 23 U/L (15-37) Alanine Aminotransferase (ALT/SGPT) 40 U/L (16-63) Alkaline Phosphatase 64 U/L (46-116) Troponin I Quantitative < 0.017 ng/mL (0.000-0.055) DH-Uzb-J-Type Natriuretic Peptide 95 pg/mL (0-124) Total Protein 7.3 g/dL (6.4-8.2) Albumin 3.4 g/dL (3.4-5.0) Albumin/Globulin Ratio 0.9 (1.0-1.7) O2 Saturation 92 % (92-99) Arterial Blood pH 7.42 (7.35-7.45) Arterial Blood pCO2 at Patient Temp 36 mmHg (35-46) Arterial Blood pO2 at Patient Temp 62 mmHg (65-108) Arterial Blood HCO3 23 mmol/L (21-28) Arterial Blood Base Excess -1 mmol/L (-3-3) Oxyhemoglobin 91.1 % Methemoglobin 0.6 % (0.0-1.9) Carbon Monoxide, Quantitative 0.0 % (0.0-1.9) FiO2 21 Urine Collection Type Unknown Urine Color Yellow Urine Clarity Clear Urine pH 6.0 (<5.0-8.0) Urine Specific [place] >=1.030 (1.000-1.030) Urine Protein Negative mg/dL (NEG-TRACE) Urine Glucose (UA) 250 mg/dL (NEG) Urine Ketones (Stick) Negative mg/dL (NEG) Urine Blood Negative (NEG) Urine Nitrite Negative (NEG) Urine Bilirubin Negative (NEG) Urine Urobilinogen Dipstick 0.2 mg/dL (0.2 mg/dL) Urine Leukocyte Esterase Negative (NEG) Urine RBC 0 /HPF (0-2) Urine WBC Rare /HPF (0-4) Urine Squamous Epithelial Cells Occ /LPF Urine Bacteria 0 /HPF (0-FEW) Urine Sperm Present /HPF Test 05/30/21 07:11 Glucose (Fingerstick) 364 mg/dL (70-99) Assessment/Plan Assessment/Plan COPD exacerbation, history of COVID-19, pneumonia possibly bacterial gram- negative versus gram-positive, history COVID-19, type 2 diabetes, hypertension Admit to hospitalist Continue COPD treatment along with pneumonia treatment. Continue antibiotics and steroids As needed breathing treatment Pulmonary consulted PT OT ordered Home meds resumed as indicated, will need to increase insulin due to steroids DVT prophylaxis Diabetic diet Justifications for Admission Other Justification ANGINA, LOCULTAED EFFUSION HX Left pneumothorax SAM PAULINO MD May 30, 2021 08:18
[2021-05-30] MEDS: fentaNYL PF VIAL 100 MCG/2 ML VIAL IVP PRN ×3 (08:34→20:33)
[2021-05-30] MEDS: IPRATRPIUM/ALBUTEROL 0.5/2.5MG 3 ML NEBU. NEB SCH ×3 (09:00→21:13)
[2021-05-30] MEDS: cefTRIAXone IV Push 1 GM VIAL. IVP SCH (09:11)
[2021-05-30] MEDS: GABAPENTIN 300 MG CAPSULE. PO SCH ×3 (09:12→20:32)
[2021-05-30] MEDS: SENNOSIDES/DOCUSATE 8.6/50MG TABLET. PO SCH ×2 (09:12→20:49)
[2021-05-30] MEDS: ENOXAPARIN 40 MG/0.4 ML SYRINGE. SQ SCH (09:12)
[2021-05-30] MEDS: predniSONE 20 MG TABLET PO SCH (09:12)
[2021-05-30] MEDS: FLUoxetine HCL 20 MG CAPSULE PO SCH (09:12)
[2021-05-30] MEDS: DOXYCYCLINE HYCLATE 100 MG TABLET PO SCH ×2 (09:14→20:32)
[2021-05-30] MEDS ORDERED: INSULIN LISPRO 300 UNITS/3 ML VIAL. SQ SCH ×2 (09:15→12:15)
--- NOTE | 2021-05-30 11:08 | NUR ---
SW following. Discussed with RN, pt from home, room air, ada diet. PT/OT ordered. PUI for COVID-19. SW will continue to follow.
[2021-05-30] MEDS: INSULIN LISPRO 300 UNITS/3 ML VIAL. SQ SCH ×3 (12:00→17:05)
--- NOTE | 2021-05-30 12:06 | PDOC ---
PULMONARY PROGRESS NOTES DATE: 05/30/21 TIME: 12:05 Vitals Vital Signs Date Time Temp Pulse Resp B/P (MAP) Pulse Ox O2 Delivery O2 Flow Rate FiO2 05/30/21 11:06 97.7 74 20 108/48 (68) 98 Room Air 97.7 General: Alert, No acute distress Lungs: Clear Cardiovascular: S1, S2 Abdomen: Soft, Non-tender Extremities: No Edema Labs Laboratory Tests Test 05/29/21 21:35 05/29/21 21:53 05/29/21 23:34 05/30/21 01:55 White Blood Count 19.9 x10^3/uL (4.0-11.0) Red Blood Count 4.77 x10^6/uL (4.30-5.70) Hemoglobin 13.6 g/dL (13.0-17.5) Hematocrit 40.0 % (39.0-53.0) Mean Corpuscular Volume 84 fL (79-100) Mean Corpuscular Hemoglobin 29 pg (25-35) Mean Corpuscular Hemoglobin Concent 34 g/dL (31-37) Red Cell Distribution Width 14.5 % (11.5-14.5) Platelet Count 168 x10^3/uL (140-400) Neutrophils (%) (Auto) 81 % (31-73) Lymphocytes (%) (Auto) 11 % (24-48) Monocytes (%) (Auto) 7 % (0-9) Eosinophils (%) (Auto) 0 % (0-3) Basophils (%) (Auto) 1 % (0-3) Neutrophils # (Auto) 16.1 x10^3/uL (1.8-7.7) Lymphocytes # (Auto) 2.2 x10^3/uL (1.0-4.8) Monocytes # (Auto) 1.4 x10^3/uL (0.0-1.1) Eosinophils # (Auto) 0.0 x10^3/uL (0.0-0.7) Basophils # (Auto) 0.1 x10^3/uL (0.0-0.2) Segmented Neutrophils % 87 % (35-66) Lymphocytes % 9 % (24-48) Monocytes % 4 % (0-10) Platelet Estimate Adequate (ADEQUATE) Sodium Level 139 mmol/L (136-145) Potassium Level 4.1 mmol/L (3.5-5.1) Chloride Level 102 mmol/L (98-107) Carbon Dioxide Level 28 mmol/L (21-32) Anion Gap 9 (6-14) Blood Urea Nitrogen 13 mg/dL (8-26) Creatinine 1.0 mg/dL (0.7-1.3) Estimated GFR (Cockcroft-Gault) 75.5 BUN/Creatinine Ratio 13 (6-20) Glucose Level 129 mg/dL (70-99) Lactic Acid Level 2.2 mmol/L (0.4-2.0) 3.8 mmol/L (0.4-2.0) Calcium Level 9.5 mg/dL (8.5-10.1) Total Bilirubin 1.1 mg/dL (0.2-1.0) Aspartate Amino Transf (AST/SGOT) 23 U/L (15-37) Alanine Aminotransferase (ALT/SGPT) 40 U/L (16-63) Alkaline Phosphatase 64 U/L (46-116) Troponin I Quantitative < 0.017 ng/mL (0.000-0.055) IM-Dqy-H-Type Natriuretic Peptide 95 pg/mL (0-124) Total Protein 7.3 g/dL (6.4-8.2) Albumin 3.4 g/dL (3.4-5.0) Albumin/Globulin Ratio 0.9 (1.0-1.7) O2 Saturation 92 % (92-99) Arterial Blood pH 7.42 (7.35-7.45) Arterial Blood pCO2 at Patient Temp 36 mmHg (35-46) Arterial Blood pO2 at Patient Temp 62 mmHg (65-108) Arterial Blood HCO3 23 mmol/L (21-28) Arterial Blood Base Excess -1 mmol/L (-3-3) Oxyhemoglobin 91.1 % Methemoglobin 0.6 % (0.0-1.9) Carbon Monoxide, Quantitative 0.0 % (0.0-1.9) FiO2 21 Urine Collection Type Unknown Urine Color Yellow Urine Clarity Clear Urine pH 6.0 (<5.0-8.0) Urine Specific [place] >=1.030 (1.000-1.030) Urine Protein Negative mg/dL (NEG-TRACE) Urine Glucose (UA) 250 mg/dL (NEG) Urine Ketones (Stick) Negative mg/dL (NEG) Urine Blood Negative (NEG) Urine Nitrite Negative (NEG) Urine Bilirubin Negative (NEG) Urine Urobilinogen Dipstick 0.2 mg/dL (0.2 mg/dL) Urine Leukocyte Esterase Negative (NEG) Urine RBC 0 /HPF (0-2) Urine WBC Rare /HPF (0-4) Urine Squamous Epithelial Cells Occ /LPF Urine Bacteria 0 /HPF (0-FEW) Urine Sperm Present /HPF Test 05/30/21 07:11 05/30/21 11:40 Glucose (Fingerstick) 364 mg/dL (70-99) 390 mg/dL (70-99) Laboratory Tests Test 05/29/21 21:35 05/29/21 21:53 05/29/21 23:34 05/30/21 01:55 White Blood Count 19.9 x10^3/uL (4.0-11.0) Red Blood Count 4.77 x10^6/uL (4.30-5.70) Hemoglobin 13.6 g/dL (13.0-17.5) Hematocrit 40.0 % (39.0-53.0) Mean Corpuscular Volume 84 fL (79-100) Mean Corpuscular Hemoglobin 29 pg (25-35) Mean Corpuscular Hemoglobin Concent 34 g/dL (31-37) Red Cell Distribution Width 14.5 % (11.5-14.5) Platelet Count 168 x10^3/uL (140-400) Neutrophils (%) (Auto) 81 % (31-73) Lymphocytes (%) (Auto) 11 % (24-48) Monocytes (%) (Auto) 7 % (0-9) Eosinophils (%) (Auto) 0 % (0-3) Basophils (%) (Auto) 1 % (0-3) Neutrophils # (Auto) 16.1 x10^3/uL (1.8-7.7) Lymphocytes # (Auto) 2.2 x10^3/uL (1.0-4.8) Monocytes # (Auto) 1.4 x10^3/uL (0.0-1.1) Eosinophils # (Auto) 0.0 x10^3/uL (0.0-0.7) Basophils # (Auto) 0.1 x10^3/uL (0.0-0.2) Segmented Neutrophils % 87 % (35-66) Lymphocytes % 9 % (24-48) Monocytes % 4 % (0-10) Platelet Estimate Adequate (ADEQUATE) Sodium Level 139 mmol/L (136-145) Potassium Level 4.1 mmol/L (3.5-5.1) Chloride Level 102 mmol/L (98-107) Carbon Dioxide Level 28 mmol/L (21-32) Anion Gap 9 (6-14) Blood Urea Nitrogen 13 mg/dL (8-26) Creatinine 1.0 mg/dL (0.7-1.3) Estimated GFR (Cockcroft-Gault) 75.5 BUN/Creatinine Ratio 13 (6-20) Glucose Level 129 mg/dL (70-99) Lactic Acid Level 2.2 mmol/L (0.4-2.0) 3.8 mmol/L (0.4-2.0) Calcium Level 9.5 mg/dL (8.5-10.1) Total Bilirubin 1.1 mg/dL (0.2-1.0) Aspartate Amino Transf (AST/SGOT) 23 U/L (15-37) Alanine Aminotransferase (ALT/SGPT) 40 U/L (16-63) Alkaline Phosphatase 64 U/L (46-116) Troponin I Quantitative < 0.017 ng/mL (0.000-0.055) SH-Bjt-G-Type Natriuretic Peptide 95 pg/mL (0-124) Total Protein 7.3 g/dL (6.4-8.2) Albumin 3.4 g/dL (3.4-5.0) Albumin/Globulin Ratio 0.9 (1.0-1.7) O2 Saturation 92 % (92-99) Arterial Blood pH 7.42 (7.35-7.45) Arterial Blood pCO2 at Patient Temp 36 mmHg (35-46) Arterial Blood pO2 at Patient Temp 62 mmHg (65-108) Arterial Blood HCO3 23 mmol/L (21-28) Arterial Blood Base Excess -1 mmol/L (-3-3) Oxyhemoglobin 91.1 % Methemoglobin 0.6 % (0.0-1.9) Carbon Monoxide, Quantitative 0.0 % (0.0-1.9) FiO2 21 Urine Collection Type Unknown Urine Color Yellow Urine Clarity Clear Urine pH 6.0 (<5.0-8.0) Urine Specific [place] >=1.030 (1.000-1.030) Urine Protein Negative mg/dL (NEG-TRACE) Urine Glucose (UA) 250 mg/dL (NEG) Urine Ketones (Stick) Negative mg/dL (NEG) Urine Blood Negative (NEG) Urine Nitrite Negative (NEG) Urine Bilirubin Negative (NEG) Urine Urobilinogen Dipstick 0.2 mg/dL (0.2 mg/dL) Urine Leukocyte Esterase Negative (NEG) Urine RBC 0 /HPF (0-2) Urine WBC Rare /HPF (0-4) Urine Squamous Epithelial Cells Occ /LPF Urine Bacteria 0 /HPF (0-FEW) Urine Sperm Present /HPF Test 05/30/21 07:11 05/30/21 11:40 Glucose (Fingerstick) 364 mg/dL (70-99) 390 mg/dL (70-99) Medications Active Scripts Medications Dose Route/Sig Max Daily Dose Days Date Category Ventolin Hfa Inhaler (Albuterol Sulfate) 18 Gm Hfa.aer.ad 2 Puff INH QID 05/11/21 Rx Flovent 44MCG Hfa (Fluticasone Propionate) 10.6 Gm Aer.w.adap 2 Puff IH BID 30 05/11/21 Rx Prednisone 50 Mg Tablet 1 Tab PO DAILY 5 05/11/21 Rx Doxycycline Hyclate 100 Mg Capsule 1 Cap PO BID 10 05/11/21 Rx Augmentin 875-125 Tablet (Amoxicillin/Potassium Clav) 1 Each Tablet 1 Tab PO Q12HR 10 05/11/21 Rx Insulin Lispro Kwikpen U-100 (Insulin Lispro) 100 Unit/1 Ml Insuln.pen 3 Unit SQ TIDWMEALS 30 04/11/21 Rx Basaglar Kwikpen U-100 (Insulin Glargine,Hum.rec.anlog) 100 Unit/1 Ml Insuln.pen 10 Unit SQ QHS 30 04/11/21 Rx Prednisone 20 Mg Tablet 20 Mg PO DAILY 5 04/11/21 Rx Gabapentin 300 Mg Capsule 300 Mg PO TID 30 04/11/21 Rx Aspirin Ec (Aspirin) 81 Mg Tablet.dr 81 Mg PO DAILYWBKFT 30 04/11/21 Rx Fluoxetine Hcl 20 Mg Capsule 20 Mg PO DAILY 30 04/11/21 Rx Hydrocodone-Acetamin 5-325 mg (Hydrocodone/Acetaminophen) 1 Each Tablet 1 Each PO Q4-6HRS 6 04/11/21 Rx Impression . FULL NOTE DICTATED PNEUMONIA AECOPD SEE ORDERS SINGH GARRETT MD May 30, 2021 12:05
--- NOTE | 2021-05-30 12:19 | CONS ---
DATE OF CONSULTATION: 05/30/2021 ATTENDING PHYSICIAN: Dr. Senthil Farrar. REASON FOR CONSULTATION: The patient is seen in pulmonary consultation at the request of Dr. Farrar for increasing shortness of air. CT angiogram revealed no evidence of pulmonary emboli. There was continued emphysematous and fibrosis in the bases. The previously seen hydropneumothorax had resolved. HISTORY OF PRESENT ILLNESS: The patient is well known to me from previous hospitalization. He is 65 years of age. He has had COVID in the past, had a loculated left hydropneumothorax which has since resolved. He had a chest tube in place one time. He does currently not smoke. In the past, he has had COVID-19 viral pneumonia, ARDS, respiratory failure. At one point, he also had a PEG, presented with increasing shortness of breath, cough, mostly productive of discolored sputum. No fever, chills, no COVID-19 exposures. PAST MEDICAL HISTORY: Remarkable for COVID-19 viral pneumonia, respiratory failure, ARDS, hydropneumothorax, status post chest tube placement. He has had previous trach. He was decannulated. He has underlying COPD, emphysematous, type 2 diabetes, previous PEG. PAST SURGICAL HISTORY: As above. Chest tube in the past and PEG. ALLERGIES: No known drug allergies. REVIEW OF SYSTEMS: As indicated above, otherwise a 10-point system was reviewed and negative. PHYSICAL EXAMINATION: VITAL SIGNS: Vital signs are stable. O2 saturation was greater than 92%, currently on room air. HEENT: Eyes, the sclerae are nonicteric. NECK: Jugular venous distention was not elevated. No lymphadenopathy. CHEST: Full expansion. LUNGS: Crackles, end expiratory wheeze. CARDIOVASCULAR: Regular rate and rhythm with S1, S2, no S3. ABDOMEN: Soft. EXTREMITIES: No clubbing, cyanosis or edema. LABORATORY DATA: Arterial blood gas, pH of 7.42, PaCO2 of 36, pO2 of 62. White count was elevated. He had lymphocytopenia. Electrolytes were noted. BUN and creatinine was normal. CT as indicated above. IMPRESSION: 1. Acute exacerbation of chronic obstructive pulmonary disease. 2. Progressive dyspnea secondary to above. 3. CT angiogram revealing no evidence of emphysema, previously seen hydropneumothorax has resolved. 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 He does have increased opacities in the left lower lobe compatible with pneumonia. 4. Pneumonia, gram-negative, possibly gram-positive. 5. Chronic obstructive pulmonary disease with prior history of tobacco dependence. 6. Type 2 diabetes. 7. History of COVID-19 viral pneumonia, acute respiratory distress syndrome. PLAN: 1. Recommend continue treatment for acute exacerbation of COPD and pneumonia. 2. The patient is currently on antibiotics. Continue antibiotics. 3. Nebulized treatments. 4. Check SARS-CoV-2. 5. The patient is strongly recommended to undergo vaccination. CHANDNI DR: Martínez TID: [id number]
[2021-05-30] MEDS: oxyCODONE/APAP 5/325 1 TAB TABLET PO PRN ×2 (13:54→18:05)
[2021-05-30] MEDS: ZOLPIDEM 5 MG TABLET. PO PRN (20:32)
[2021-05-30] MEDS: INSULIN GLARGINE SYRINGE. SQ SCH (20:45)
[2021-05-30] MEDS ORDERED: INSULIN GLARGINE SYRINGE. SQ SCH (21:00)
[2021-05-31 03:00] VITALS: BP 117/53
[2021-05-31] MEDS: IPRATRPIUM/ALBUTEROL 0.5/2.5MG 3 ML NEBU. NEB SCH ×4 (06:13→20:11)
[2021-05-31 07:30] VITALS: BP 108/49
[2021-05-31] MEDS: FLUoxetine HCL 20 MG CAPSULE PO SCH (08:25)
[2021-05-31] MEDS: predniSONE 20 MG TABLET PO SCH (08:26)
[2021-05-31] MEDS: oxyCODONE/APAP 5/325 1 TAB TABLET PO PRN ×4 (08:26→23:21)
[2021-05-31] MEDS: DOXYCYCLINE HYCLATE 100 MG TABLET PO SCH ×2 (08:26→20:56)
[2021-05-31] MEDS: SENNOSIDES/DOCUSATE 8.6/50MG TABLET. PO SCH ×2 (08:26→20:49)
[2021-05-31] MEDS: GABAPENTIN 300 MG CAPSULE. PO SCH ×3 (08:26→20:50)
[2021-05-31] MEDS: ASPIRIN ENTERIC COATED 81 MG TABLET.DR. PO SCH (08:26)
[2021-05-31] MEDS: ENOXAPARIN 40 MG/0.4 ML SYRINGE. SQ SCH (08:27)
[2021-05-31] MEDS: INSULIN LISPRO 300 UNITS/3 ML VIAL. SQ SCH ×6 (08:28→17:29)
[2021-05-31] MEDS: cefTRIAXone IV Push 1 GM VIAL. IVP SCH (08:29)
--- NOTE | 2021-05-31 09:36 | PDOC ---
PULMONARY PROGRESS NOTES DATE: 05/31/21 TIME: 09:36 Vitals Vital Signs Date Time Temp Pulse Resp B/P (MAP) Pulse Ox O2 Delivery O2 Flow Rate FiO2 05/31/21 08:26 18 Room Air 05/31/21 07:30 97.5 85 108/49 (68) 95 97.5 General: Alert, No acute distress Lungs: Clear Cardiovascular: S1, S2 Abdomen: Soft, Non-tender Extremities: No Edema Labs Laboratory Tests Test 05/29/21 11:55 05/29/21 21:35 05/29/21 21:53 05/29/21 23:34 SARS-CoV-2 RNA (YAN) Negative (Negative) SARS-CoV-2 Antigen (Rapid) Negative (NEGATIVE) White Blood Count 19.9 x10^3/uL (4.0-11.0) Red Blood Count 4.77 x10^6/uL (4.30-5.70) Hemoglobin 13.6 g/dL (13.0-17.5) Hematocrit 40.0 % (39.0-53.0) Mean Corpuscular Volume 84 fL (79-100) Mean Corpuscular Hemoglobin 29 pg (25-35) Mean Corpuscular Hemoglobin Concent 34 g/dL (31-37) Red Cell Distribution Width 14.5 % (11.5-14.5) Platelet Count 168 x10^3/uL (140-400) Neutrophils (%) (Auto) 81 % (31-73) Lymphocytes (%) (Auto) 11 % (24-48) Monocytes (%) (Auto) 7 % (0-9) Eosinophils (%) (Auto) 0 % (0-3) Basophils (%) (Auto) 1 % (0-3) Neutrophils # (Auto) 16.1 x10^3/uL (1.8-7.7) Lymphocytes # (Auto) 2.2 x10^3/uL (1.0-4.8) Monocytes # (Auto) 1.4 x10^3/uL (0.0-1.1) Eosinophils # (Auto) 0.0 x10^3/uL (0.0-0.7) Basophils # (Auto) 0.1 x10^3/uL (0.0-0.2) Segmented Neutrophils % 87 % (35-66) Lymphocytes % 9 % (24-48) Monocytes % 4 % (0-10) Platelet Estimate Adequate (ADEQUATE) Sodium Level 139 mmol/L (136-145) Potassium Level 4.1 mmol/L (3.5-5.1) Chloride Level 102 mmol/L (98-107) Carbon Dioxide Level 28 mmol/L (21-32) Anion Gap 9 (6-14) Blood Urea Nitrogen 13 mg/dL (8-26) Creatinine 1.0 mg/dL (0.7-1.3) Estimated GFR (Cockcroft-Gault) 75.5 BUN/Creatinine Ratio 13 (6-20) Glucose Level 129 mg/dL (70-99) Lactic Acid Level 2.2 mmol/L (0.4-2.0) Calcium Level 9.5 mg/dL (8.5-10.1) Total Bilirubin 1.1 mg/dL (0.2-1.0) Aspartate Amino Transf (AST/SGOT) 23 U/L (15-37) Alanine Aminotransferase (ALT/SGPT) 40 U/L (16-63) Alkaline Phosphatase 64 U/L (46-116) Troponin I Quantitative < 0.017 ng/mL (0.000-0.055) MX-Hws-W-Type Natriuretic Peptide 95 pg/mL (0-124) Total Protein 7.3 g/dL (6.4-8.2) Albumin 3.4 g/dL (3.4-5.0) Albumin/Globulin Ratio 0.9 (1.0-1.7) O2 Saturation 92 % (92-99) Arterial Blood pH 7.42 (7.35-7.45) Arterial Blood pCO2 at Patient Temp 36 mmHg (35-46) Arterial Blood pO2 at Patient Temp 62 mmHg (65-108) Arterial Blood HCO3 23 mmol/L (21-28) Arterial Blood Base Excess -1 mmol/L (-3-3) Oxyhemoglobin 91.1 % Methemoglobin 0.6 % (0.0-1.9) Carbon Monoxide, Quantitative 0.0 % (0.0-1.9) FiO2 21 Urine Collection Type Unknown Urine Color Yellow Urine Clarity Clear Urine pH 6.0 (<5.0-8.0) Urine Specific Tyler >=1.030 (1.000-1.030) Urine Protein Negative mg/dL (NEG-TRACE) Urine Glucose (UA) 250 mg/dL (NEG) Urine Ketones (Stick) Negative mg/dL (NEG) Urine Blood Negative (NEG) Urine Nitrite Negative (NEG) Urine Bilirubin Negative (NEG) Urine Urobilinogen Dipstick 0.2 mg/dL (0.2 mg/dL) Urine Leukocyte Esterase Negative (NEG) Urine RBC 0 /HPF (0-2) Urine WBC Rare /HPF (0-4) Urine Squamous Epithelial Cells Occ /LPF Urine Bacteria 0 /HPF (0-FEW) Urine Sperm Present /HPF Test 05/30/21 01:55 05/30/21 07:11 05/30/21 11:40 05/30/21 16:33 Lactic Acid Level 3.8 mmol/L (0.4-2.0) Glucose (Fingerstick) 364 mg/dL (70-99) 390 mg/dL (70-99) 326 mg/dL (70-99) Test 05/30/21 20:30 05/31/21 06:58 Glucose (Fingerstick) 285 mg/dL (70-99) 255 mg/dL (70-99) Laboratory Tests Test 05/30/21 11:40 05/30/21 16:33 05/30/21 20:30 05/31/21 06:58 Glucose (Fingerstick) 390 mg/dL (70-99) 326 mg/dL (70-99) 285 mg/dL (70-99) 255 mg/dL (70-99) Medications Active Scripts Medications Dose Route/Sig Max Daily Dose Days Date Category Ventolin Hfa Inhaler (Albuterol Sulfate) 18 Gm Hfa.aer.ad 2 Puff INH QID 05/11/21 Rx Flovent 44MCG Hfa (Fluticasone Propionate) 10.6 Gm Aer.w.adap 2 Puff IH BID 30 05/11/21 Rx Prednisone 50 Mg Tablet 1 Tab PO DAILY 5 05/11/21 Rx Doxycycline Hyclate 100 Mg Capsule 1 Cap PO BID 10 05/11/21 Rx Augmentin 875-125 Tablet (Amoxicillin/Potassium Clav) 1 Each Tablet 1 Tab PO Q12HR 10 05/11/21 Rx Insulin Lispro Kwikpen U-100 (Insulin Lispro) 100 Unit/1 Ml Insuln.pen 3 Unit SQ TIDWMEALS 30 04/11/21 Rx Basaglar Kwikpen U-100 (Insulin Glargine,Hum.rec.anlog) 100 Unit/1 Ml Insuln.pen 10 Unit SQ QHS 30 04/11/21 Rx Prednisone 20 Mg Tablet 20 Mg PO DAILY 5 04/11/21 Rx Gabapentin 300 Mg Capsule 300 Mg PO TID 30 04/11/21 Rx Aspirin Ec (Aspirin) 81 Mg Tablet.dr 81 Mg PO DAILYWBKFT 30 04/11/21 Rx Fluoxetine Hcl 20 Mg Capsule 20 Mg PO DAILY 30 04/11/21 Rx Hydrocodone-Acetamin 5-325 mg (Hydrocodone/Acetaminophen) 1 Each Tablet 1 Each PO Q4-6HRS 6 04/11/21 Rx Impression . IMPRESSION: 1. Acute exacerbation of chronic obstructive pulmonary disease. 2. Progressive dyspnea secondary to above. 3. CT angiogram revealing no evidence of emphysema, previously seen hydropneumothorax has resolved. 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 He does have increased opacities in the left lower lobe compatible with pneumonia. 4. Pneumonia, gram-negative, possibly gram-positive. 5. Chronic obstructive pulmonary disease with prior history of tobacco dependence. 6. Type 2 diabetes. 7. History of COVID-19 viral pneumonia, acute respiratory distress syndrome. Plan . PLAN: 1. Recommend continue treatment for acute exacerbation of COPD and pneumonia. 2. The patient is currently on antibiotics. Continue antibiotics. 3. Nebulized treatments. 4. Check SARS-CoV-2. 5. The patient is strongly recommended to undergo vaccination. SINGH VAZQUEZ MD May 31, 2021 09:36
--- NOTE | 2021-05-31 10:36 | NUR ---
Pt has a history of being noncompliant with his diabetic diet. Blood sugars remain in the 200s which has improved from admission. Will continue to give insulin as ordered. Pt continues to ask for cookies and pop. Diet cola given to pt and continue to discourage foods with sugar. Ambulated with therapy and o2 sats remain in the 90s on room air. Will five update to physician.
[2021-05-31 10:49] VITALS: BP 120/54
[2021-05-31] MEDS ORDERED: DOXY100T PO (11:39)
[2021-05-31] MEDS ORDERED: PRED20TA PO (11:39)
[2021-05-31] MEDS ORDERED: CEFD300C PO (11:40)
--- NOTE | 2021-05-31 11:45 | PDOC3 ---
[facility]-Discharge Summary Date of Admission: Date of Admission: May 30, 2021 Date of Discharge: Date of Discharge: May 31, 2021 Admission Diagnosis: Problems: (1) COVID-19 long hauler (2) Pneumonia Discharge Diagnosis: Discharge Diagnosis: Same Consults: Consults: Pulmonary Hospital Course: Hospital Course: Patient is a 65-year-old male who presented to the hospital overnight due to shortness of breath with increased cough and sputum production.. Was hospitalized with Covid in September. Still having quite a few symptoms. Reports he came in because he feels like he is unable to catch his breath most of the time. Saturations aware and in the low 90s on presentation to the emergency room. Reports that he is overall just feeling very weak as well ever since he had Covid. Does not feel as if he has really recovered overall. Patient during Covid admission required a chest tube due to hydropneumothorax. When evaluated this morning patient was denying headache, vision changes, chest pain, abdominal pain. 05/31 Patient evaluated this morning at bedside. Was able to walk with therapy without difficulty. Reports feeling improved from respiratory standpoint. Can finish pneumonia and COPD exacerbation treatment at home. Will discharge today. Disposition: Disposition/Orders: D/C to Home Activity: Activity: Resume previous activity Diet: Diet: other (diabetic) Medications: Home Meds Active Scripts Cefdinir (CEFDINIR) 300 Mg Capsule, 300 MG PO BID for pneumonia for 10 Days, #20 CAP Prov:SAM PAULINO MD 05/31/21 Prednisone (PREDNISONE) 20 Mg Tablet, 40 MG PO DAILY for copd for 5 Days, #10 TAB Prov:SAM PAULINO MD 05/31/21 Doxycycline Hyclate (DOXYCYCLINE HYCLATE) 100 Mg Tablet, 100 MG PO BID for pneumonia for 10 Days, #20 TAB Prov:SAM PAULINO MD 05/31/21 Albuterol Sulfate (VENTOLIN HFA INHALER) 18 Gm Hfa.aer.ad, 2 PUFF INH QID for FOR ASTHMA, #1 INHALER 0 Refills Prov:MICHELLE DE LOS SANTOS DO 05/11/21 Fluticasone Propionate (FLOVENT 44MCG HFA) 10.6 Gm Aer.w.adap, 2 PUFF IH BID for 30 Days, #1 INHALER 0 Refills Prov:MICHELLE DE LOS SANTOS DO 05/11/21 Insulin Lispro (Insulin Lispro Kwikpen U-100) 100 Unit/1 Ml Insuln.pen, 3 UNIT SQ TIDWMEALS for DM2 for 30 Days, #3 EACH 11 Refills Prov:SAM FAIRBANKS MD 04/11/21 Insulin Glargine,Hum.rec.anlog (Basaglar Kwikpen U-100) 100 Unit/1 Ml Insuln .pen, 10 UNIT SQ QHS for DM2 for 30 Days, #3 EACH 11 Refills Prov:SAM FAIRBANKS MD 04/11/21 Gabapentin (GABAPENTIN) 300 Mg Capsule, 300 MG PO TID for Neuropathy for 30 Days, #90 CAP 3 Refills Prov:SAM FAIRBANKS MD 04/11/21 Aspirin (ASPIRIN EC) 81 Mg Tablet.dr, 81 MG PO DAILYWBKFT for CAD for 30 Days, #30 TAB.SR 11 Refills Prov:SAM FAIRBANKS MD 04/11/21 Fluoxetine Hcl (FLUOXETINE HCL) 20 Mg Capsule, 20 MG PO DAILY for Depression for 30 Days, #30 CAP 2 Refills Prov:SAM FAIRBANKS MD 04/11/21 Hydrocodone/Acetaminophen (Hydrocodone-Acetamin 5-325 mg) 1 Each Tablet, 1 EACH PO Q4-6HRS for COVID pain for 6 Days, #36 TAB Prov:SAM FAIRBANKS MD 04/11/21 Discontinued Scripts Prednisone (PREDNISONE) 50 Mg Tablet, 1 TAB PO DAILY for 5 Days, #5 TAB Prov:MICHELLE DE LOS SANTOS DO 05/11/21 Doxycycline Hyclate (DOXYCYCLINE HYCLATE) 100 Mg Capsule, 1 CAP PO BID for 10 Days, #20 CAP Prov:MICHELLE DE LOS SANTOS DO 05/11/21 Amoxicillin/Potassium Clav (AUGMENTIN 875-125 TABLET) 1 Each Tablet, 1 TAB PO Q12HR for 10 Days, #20 TAB Prov:MICHELLE DE LOS SANTOS DO 05/11/21 Prednisone (PREDNISONE) 20 Mg Tablet, 20 MG PO DAILY for Bronchitis for 5 Days, #5 TAB Prov:SAM FAIRBANKS MD 04/11/21 Scheduled Albuterol Sulfate (Ventolin Hfa Inhaler), 2 PUFF INH QID Aspirin (Aspirin Ec), 81 MG PO DAILYWBKFT Cefdinir (Cefdinir), 300 MG PO BID Doxycycline Hyclate (Doxycycline Hyclate), 100 MG PO BID Fluoxetine Hcl (Fluoxetine Hcl), 20 MG PO DAILY Fluticasone Propionate (Flovent 44MCG Hfa), 2 PUFF IH BID Gabapentin (Gabapentin), 300 MG PO TID Hydrocodone/Acetaminophen (Hydrocodone-Acetamin 5-325 mg), 1 EACH PO Q4-6HRS Insulin Glargine,Hum.rec.anlog (Basaglar Kwikpen U-100), 10 UNIT SQ QHS Insulin Lispro (Insulin Lispro Kwikpen U-100), 3 UNIT SQ TIDWMEALS Prednisone (Prednisone), 40 MG PO DAILY Discontinued Medications Amoxicillin/Potassium Clav (Augmentin 875-125 Tablet), 1 TAB PO Q12HR Doxycycline Hyclate (Doxycycline Hyclate), 1 CAP PO BID Prednisone (Prednisone), 20 MG PO DAILY Prednisone (Prednisone), 1 TAB PO DAILY Justicifation of Admission Dx: Justifications for Admission: Justification of Admission Dx: Yes Comminuty Aquired Pneumonia: Hypoxemia Chronic Renal Failure: Intravenous Infusions SAM PAULINO MD May 31, 2021 11:45
[2021-05-31 14:52] VITALS: BP 110/50
[2021-05-31 19:00] VITALS: BP 130/64
[2021-05-31] MEDS: CEFDINIR 300 MG CAPSULE PO SCH (20:50)
[2021-05-31] MEDS: INSULIN GLARGINE SYRINGE. SQ SCH (20:50)
[2021-05-31] MEDS: ZOLPIDEM 5 MG TABLET. PO PRN (20:50)
[2021-05-31 23:00] VITALS: BP 106/43
[2021-06-01 03:00] VITALS: BP 137/74
[2021-06-01] MEDS: IPRATRPIUM/ALBUTEROL 0.5/2.5MG 3 ML NEBU. NEB SCH ×3 (06:26→15:56)
[2021-06-01 07:00] VITALS: BP 109/53
[2021-06-01] MEDS: SENNOSIDES/DOCUSATE 8.6/50MG TABLET. PO SCH (09:00)
[2021-06-01] MEDS: ENOXAPARIN 40 MG/0.4 ML SYRINGE. SQ SCH (09:00)
[2021-06-01] MEDS: GABAPENTIN 300 MG CAPSULE. PO SCH ×2 (09:13→14:53)
[2021-06-01] MEDS: ASPIRIN ENTERIC COATED 81 MG TABLET.DR. PO SCH (09:13)
[2021-06-01] MEDS: DOXYCYCLINE HYCLATE 100 MG TABLET PO SCH (09:13)
[2021-06-01] MEDS: INSULIN LISPRO 300 UNITS/3 ML VIAL. SQ SCH ×6 (09:14→17:18)
[2021-06-01] MEDS: predniSONE 20 MG TABLET PO SCH (09:15)
[2021-06-01] MEDS: CEFDINIR 300 MG CAPSULE PO SCH (09:16)
[2021-06-01] MEDS: FLUoxetine HCL 20 MG CAPSULE PO SCH (09:16)
[2021-06-01] MEDS: oxyCODONE/APAP 5/325 1 TAB TABLET PO PRN (09:25)
--- NOTE | 2021-06-01 10:20 | PDOC ---
PULMONARY PROGRESS NOTES DATE: 06/01/21 TIME: 10:18 Subjective Patient remains on room air but does have exertional dyspnea. Vitals Vital Signs Date Time Temp Pulse Resp B/P (MAP) Pulse Ox O2 Delivery O2 Flow Rate FiO2 06/01/21 09:25 19 93 Room Air 06/01/21 07:00 97.5 89 109/53 (71) 97.5 General: Alert, No acute distress Lungs: Clear Cardiovascular: S1, S2 Abdomen: Soft, Non-tender Extremities: No Edema Labs Laboratory Tests Test 05/30/21 11:40 05/30/21 16:33 05/30/21 20:30 05/31/21 06:58 Glucose (Fingerstick) 390 mg/dL (70-99) 326 mg/dL (70-99) 285 mg/dL (70-99) 255 mg/dL (70-99) Test 05/31/21 11:22 05/31/21 17:02 05/31/21 20:12 06/01/21 07:32 Glucose (Fingerstick) 202 mg/dL (70-99) 273 mg/dL (70-99) 324 mg/dL (70-99) 238 mg/dL (70-99) Laboratory Tests Test 05/31/21 11:22 05/31/21 17:02 05/31/21 20:12 06/01/21 07:32 Glucose (Fingerstick) 202 mg/dL (70-99) 273 mg/dL (70-99) 324 mg/dL (70-99) 238 mg/dL (70-99) Medications Active Scripts Medications Dose Route/Sig Max Daily Dose Days Date Category Ventolin Hfa Inhaler (Albuterol Sulfate) 18 Gm Hfa.aer.ad 2 Puff INH QID 05/11/21 Rx Flovent 44MCG Hfa (Fluticasone Propionate) 10.6 Gm Aer.w.adap 2 Puff IH BID 30 05/11/21 Rx Prednisone 50 Mg Tablet 1 Tab PO DAILY 5 05/11/21 Rx Doxycycline Hyclate 100 Mg Capsule 1 Cap PO BID 10 05/11/21 Rx Augmentin 875-125 Tablet (Amoxicillin/Potassium Clav) 1 Each Tablet 1 Tab PO Q12HR 10 05/11/21 Rx Insulin Lispro Kwikpen U-100 (Insulin Lispro) 100 Unit/1 Ml Insuln.pen 3 Unit SQ TIDWMEALS 30 04/11/21 Rx Basaglar Kwikpen U-100 (Insulin Glargine,Hum.rec.anlog) 100 Unit/1 Ml Insuln.pen 10 Unit SQ QHS 30 04/11/21 Rx Prednisone 20 Mg Tablet 20 Mg PO DAILY 5 04/11/21 Rx Gabapentin 300 Mg Capsule 300 Mg PO TID 30 04/11/21 Rx Aspirin Ec (Aspirin) 81 Mg Tablet.dr 81 Mg PO DAILYWBKFT 30 04/11/21 Rx Fluoxetine Hcl 20 Mg Capsule 20 Mg PO DAILY 30 04/11/21 Rx Hydrocodone-Acetamin 5-325 mg (Hydrocodone/Acetaminophen) 1 Each Tablet 1 Each PO Q4-6HRS 6 04/11/21 Rx Impression . IMPRESSION: 1. Acute exacerbation of chronic obstructive pulmonary disease. 2. Progressive dyspnea secondary to above. 3. CT angiogram revealing no evidence of emphysema, previously seen hydropneumothorax has resolved. 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 He does have increased opacities in the left lower lobe compatible with pneumonia. 4. Possible pneumonia, gram-negative, possibly gram-positive. 5. Chronic obstructive pulmonary disease with prior history of tobacco dependence. 6. Type 2 diabetes. 7. History of COVID-19 viral pneumonia, acute respiratory distress syndrome. Plan . PLAN: 1. Recommend continue treatment for acute exacerbation of COPD and pneumonia. Currently on room air. 2. The patient is currently on antibiotics. Continue antibiotics. 3. Nebulized treatments. Oral steroid taper 4. Negative SARS-CoV-2. 5. The patient is strongly recommended to undergo vaccination. 6. Possible discharge today or in the next 24 hours ANDREA BOWERS MD Jun 01, 2021 10:20
--- NOTE | 2021-06-01 10:47 | PDOC ---
[facility] PROGRESS NOTE Date of Service DOS: DATE: 06/01/21 TIME: 10:44 Chief Complaint Chief Complaint Shortness of breath History of Present Illness History of Present Illness Patient is a 65-year-old male who presented to the hospital overnight due to shortness of breath with increased cough and sputum production.. Was hospitalized with Covid in September. Still having quite a few symptoms. Reports he came in because he feels like he is unable to catch his breath most of the time. Saturations aware and in the low 90s on presentation to the emergency room. Reports that he is overall just feeling very weak as well ever since he had Covid. Does not feel as if he has really recovered overall. Patient during Covid admission required a chest tube due to hydropneumothorax. When evaluated this morning patient was denying headache, vision changes, chest pain, abdominal pain. 06/01 Patient evaluated today, remains on room air. Does state shortness of breath with exertion however witnessed ambulating without difficulty with physical therapy yesterday. Will plan to discharge today. Vitals/I&O Vitals/I&O: Vital Signs Date Time Temp Pulse Resp B/P (MAP) Pulse Ox O2 Delivery O2 Flow Rate FiO2 06/01/21 09:25 19 93 Room Air 06/01/21 07:00 97.5 89 109/53 (71) 97.5 I & O 05/31/21 05/31/21 06/01/21 15:00 23:00 07:00 Intake Total 600 ml 620 ml Balance 600 ml 620 ml Physical Exam General: Alert, Oriented X3, Cooperative Heart: Regular rate, Normal S1, Normal S2 Lungs: Clear Abdomen: Normal bowel sounds, Soft, No tenderness Extremities: No edema, Normal pulses Skin: No significant lesion Labs Labs: Laboratory Tests Test 05/31/21 11:22 05/31/21 17:02 05/31/21 20:12 06/01/21 07:32 Glucose (Fingerstick) 202 mg/dL (70-99) 273 mg/dL (70-99) 324 mg/dL (70-99) 238 mg/dL (70-99) Assessment and Plan Assessmemt and Plan Problems Medical Problems: (1) COVID-19 long hauler Status: Acute (2) Pneumonia Status: Acute (3) SIRS (systemic inflammatory response syndrome) Status: Acute COPD exacerbation, history of COVID-19, pneumonia possibly bacterial gram- negative versus gram-positive, history COVID-19, type 2 diabetes, hypertension Admit to hospitalist Continue COPD treatment along with pneumonia treatment. Continue antibiotics and steroids --> these have been prescribed and sent to patient's pharmacy As needed breathing treatment Pulmonary consulted PT OT ordered Home meds resumed as indicated, will need to increase insulin due to steroids DVT prophylaxis Diabetic diet Comment Review of Relevant I have reviewed the following items erick (where applicable) has been applied. Medications: Current Medications Medications (Trade) Dose Ordered Sig/Stacy Route PRN Reason Start Time Stop Time Status Last Admin Dose Admin Cefdinir (Omnicef) 300 mg BID PO 05/31/21 21:00 06/01/21 09:16 Justifications for Admission Other Justification ANGINA, LOCULTAED EFFUSION HX Left pneumothorax SAM PAULINO MD Jun 01, 2021 10:47
[2021-06-01 11:00] VITALS: BP 110/49
[2021-06-01 15:00] VITALS: BP 134/68
--- NOTE | 2021-06-01 16:12 | NUR ---
SW following. Discussed with RN, discharge order for home with self care. Pt is a high risk readmission for non compliance. No further SW needs.
--- NOTE | 2021-06-01 17:45 | NUR ---
DISCHARGE INSTRUCTIONS GIVEN, QUESTIONS AND CONCERNS ANSWERED, PATIENT VERBALIZED UNDERSTANDING OF DISCHARGE INFORMATION INCLUDING TAKING ALL MEDICATIONS INSTRUCTED AND FOLLOWING UP WITH HIS PRIMARY PROVIDER IN 1-2 WEEKS, ALL PERSONAL BELONGINGS GATHERED BY THE PATIENT AND PLACED IN BAGS FOR DISCHARGE, SALINE LOCK REMOVED FROM PATIENTS' RIGHT ARM AND BANDAGE APPLIED PER PROGRAMMING MANAGER.
--- NOTE | 2021-06-01 18:10 | NUR ---
PATIENT LEAVES THE UNIT PER W/C AND ACCOMPANIED BY THIS FIXED INCOME DIRECTOR HE DROVE HIMSELF TO THE HOSPITAL., EMOTIONAL SUPPORT GIVEN.
[2021-06-01] MEDS ORDERED: LACTOBACILLUS RHAMNOSUS GG 1 CAPSULE. PO SCH (21:00)
== END 2021-06-01 18:10 | disposition home or self-care (01) | DRG 871 ==
LOC: ER 20:58 → 5 NORTH 23:22
PROVIDERS: ADMIT Internal Medicine; ATTEND Internal Medicine
DX: A41.9 Sepsis, unspecified organism (principal); J15.6 Pneumonia due to other Gram-negative bacteria; J44.1 Chronic obstructive pulmonary disease with (acute) exacerbation; J44.0 Chronic obstructive pulmonary disease with (acute) lower respiratory infection; I10 Essential (primary) hypertension; E11.40 Type 2 diabetes mellitus with diabetic neuropathy, unspecified; Z90.49 Acquired absence of other specified parts of digestive tract; Z93.1 Gastrostomy status; Z87.891 Personal history of nicotine dependence; Z87.01 Personal history of pneumonia (recurrent); Z86.16 Personal history of COVID-19; Z20.822 Contact with and (suspected) exposure to COVID-19
CPT/HCPCS: 36415; 36600; 71045; 71275; 72125; 72131; 80053; 81001; 82805; 82962; 83605; 83880; 84484; 85007; 85025; 87040; 87426; 93005; 94640; 96361; 96365; 96375; J0696; J1650; J1815; J2543; J2930; J3010; J7030; J7512; Q9967; U0003; U0005; 97110-GP; 97116-GP; 97535-GO; 99285-25; G0378

== ENCOUNTER 2021-09-09 16:18 | Emergency (ER) | payer OTHER ==
[~2021-09-09] VITALS: Ht 175.3 cm; Wt 86.0 kg
[~2021-09-09 16:18] MED LIST changes: +CEFD300C PO; +DOXY100T PO; -FLUO20CA20 PO; +FLUO20CA22 PO
[2021-09-09] MEDS ORDERED: oxyCODONE IR 5 MG TABLET PO ONE (17:15)
[2021-09-09 17:39] LABS: BASO # 0.1 x10^3/uL (0.0-0.2); BASO % 1 % (0-3); EOS # 0.4 x10^3/uL (0.0-0.7); EOS % 3 % (0-3); HEMATOCRIT 44.1 % (39.0-53.0); HEMOGLOBIN 14.9 g/dL (13.0-17.5); LYMPH # 4.3 x10^3/uL (1.0-4.8); LYMPH % 29 % (24-48); MEAN CORPUSCULAR HEMOGLOBIN 29 pg (25-35); MEAN CORPUSCULAR HGB CONC 34 g/dL (31-37); MEAN CORPUSCULAR VOLUME 87 fL (79-100); MONO # 1.1 x10^3/uL (0.0-1.1); MONO % 8 % (0-9); NEUT # 8.9 x10^3/uL (1.8-7.7); NEUT % 60 % (31-73); PLATELET COUNT 203 x10^3/uL (140-400); RED BLOOD COUNT 5.09 x10^6/uL (4.30-5.70); RED CELL DISTRIBUTION WIDTH 13.2 % (11.5-14.5); WHITE BLOOD COUNT 14.9 x10^3/uL (4.0-11.0)
--- NOTE | 2021-09-09 17:58 | PHYS DOC ---
Past Medical History Past Medical History: Diabetes-Type II Additional Past Medical Histor: NEUROPATHY,pneumonia, COVID (BRE HOUSTON MD) Past Surgical History: Cholecystectomy Additional Past Surgical Histo: something in my abd (BRE HOUSTON MD) Smoking Status: Former Smoker Alcohol Use: None Drug Use: None (BRE HOUSTON MD) Adult General Chief Complaint Chief Complaint: SHORTNESS OF BREATH HPI HPI The patient is a 66-year-old male with a history of insulin-dependent diabetes, COPD not on home oxygen and remote alcohol and polysubstance abuse in sustained remission, alcoholic and diabetic polyneuropathy with consequent chronic pain on gabapentin. Earlier this year patient had a protracted admission for COVID-19, was intubated for weeks, ended up with trach and PEG and had admission also complicated by pneumothorax with chest tube placement. Per records, patient has returned to the emergency department here multiple times in recent months complaining of shortness of breath and his chronic allover body pain. He has had multiple admissions without clear etiology for his shortness of breath identified. His body pain has repeatedly been ascribed to his alcoholic/diabetic polyneuropathy. Patient returns to the emergency department again today with complaints of shortness of breath and all over body pain from his neuropathy. He states everything hurts despite his home gabapentin. He tells me that he is short of breath but tells me that he is always short of breath and that nothing much is new or different today with his breathing. When asked whether his chronic shortness of breath was the reason that he came to the hospital today, he contradicts his earlier statement and says that it is, and that his breathing is actually worse than usual today. Objectively he is saturating appropriately on room air and speaking comfortably in full sentences. Mr. Dumont mentions repeatedly that IV pain medication helps to "relax me so that I can breathe better." Patient denies fevers, nausea or vomiting, upper respiratory congestion/rhinorrhea, cough, sore throat, chest pain of any kind, abdominal pain of any kind, flank pain, midline back pain, dysuria, hematuria, polyuria or oliguria, changes in bowel habits. Vital signs are appropriate here in the patient is in no acute distress. (BRE HOUSTON MD) Review of Systems Review of Systems A 12 point review of systems was completed and was negative except where noted in HPI above. (BRE HOUSTON MD) Current Medications Current Medications Current Medications Medications (Trade) Dose Ordered Sig/Stacy Start Time Stop Time Status Last Admin Dose Admin Oxycodone HCl (Roxicodone) 5 mg 1X ONCE 09/09/21 17:15 09/09/21 17:19 DC 09/09/21 17:31 5 MG (SHARAN ESTRADA DO) Allergies Allergies Allergies Coded Allergies Type Severity Reaction Last Updated Verified I S O L A T I O N *CONTACT* Allergy Unknown 01/11/21 Yes No Known Medication Allergies Allergy Unknown 01/11/21 Yes (SHARAN ESTRADA DO) Physical Exam Physical Exam Older male appearing nontoxic and in no acute distress. Head is normocephalic and atraumatic. Neck is supple and nontender. Oropharynx is moist. Lungs are clear to auscultation at all stations. There is a normal S1 and S2 without rubs or gallops and capillary refill is appropriate, less than 2 seconds globally. Abdomen is soft, nontender nondistended. Skin is warm and dry without cyanosis, clubbing or edema. Psychiatrically, the patient dem onstrates appropriate mood and affect and is alert. Evaluation of the extremities reveals BUEs and BLEs neurovascularly intact distally with strength 5 out of 5, sensation intact light touch in all nerve distributions, radial, DP and PT pulses 2+ and equal bilaterally, capillary refill less than 2 seconds, hands and feet warm and well-perfused. No dependent peripheral edema distally. No calf tenderness or swelling bilaterally. Asher's test is negative bilaterally. (BRE HOUSTON MD) Current Patient Data Vital Signs Vital Signs Date Time Temp Pulse Resp B/P (MAP) Pulse Ox O2 Delivery O2 Flow Rate FiO2 09/09/21 19:46 88 156/90 (112) 96 Room Air 09/09/21 16:53 98.7 24 98.7 (SHARAN ESTRADA DO) Lab Values Laboratory Tests Test 09/09/21 17:26 09/09/21 18:02 White Blood Count 14.9 x10^3/uL (4.0-11.0) H Red Blood Count 5.09 x10^6/uL (4.30-5.70) Hemoglobin 14.9 g/dL (13.0-17.5) Hematocrit 44.1 % (39.0-53.0) Mean Corpuscular Volume 87 fL (79-100) Mean Corpuscular Hemoglobin 29 pg (25-35) Mean Corpuscular Hemoglobin Concent 34 g/dL (31-37) Red Cell Distribution Width 13.2 % (11.5-14.5) Platelet Count 203 x10^3/uL (140-400) Neutrophils (%) (Auto) 60 % (31-73) Lymphocytes (%) (Auto) 29 % (24-48) Monocytes (%) (Auto) 8 % (0-9) Eosinophils (%) (Auto) 3 % (0-3) Basophils (%) (Auto) 1 % (0-3) Neutrophils # (Auto) 8.9 x10^3/uL (1.8-7.7) H Lymphocytes # (Auto) 4.3 x10^3/uL (1.0-4.8) Monocytes # (Auto) 1.1 x10^3/uL (0.0-1.1) Eosinophils # (Auto) 0.4 x10^3/uL (0.0-0.7) Basophils # (Auto) 0.1 x10^3/uL (0.0-0.2) Sodium Level 138 mmol/L (136-145) Potassium Level 4.1 mmol/L (3.5-5.1) Chloride Level 101 mmol/L (98-107) Carbon Dioxide Level 26 mmol/L (21-32) Anion Gap 11 (6-14) Blood Urea Nitrogen 12 mg/dL (8-26) Creatinine 0.8 mg/dL (0.7-1.3) Estimated GFR (Cockcroft-Gault) 97.3 BUN/Creatinine Ratio 15 (6-20) Glucose Level 315 mg/dL (70-99) H Calcium Level 8.9 mg/dL (8.5-10.1) Total Bilirubin 0.4 mg/dL (0.2-1.0) Aspartate Amino Transferase (AST) 17 U/L (15-37) Alanine Aminotransferase (ALT) 42 U/L (16-63) Alkaline Phosphatase 62 U/L (46-116) Troponin I High Sensitivity 6 ng/L (4-75) Total Protein 7.6 g/dL (6.4-8.2) Albumin 3.7 g/dL (3.4-5.0) Albumin/Globulin Ratio 0.9 (1.0-1.7) L Laboratory Tests 09/09/21 17:26 Laboratory Tests 09/09/21 18:02 (SHARAN ESTRADA DO) Lab Values Laboratory Tests Test 09/09/21 17:26 White Blood Count 14.9 x10^3/uL (4.0-11.0) H Red Blood Count 5.09 x10^6/uL (4.30-5.70) Hemoglobin 14.9 g/dL (13.0-17.5) Hematocrit 44.1 % (39.0-53.0) Mean Corpuscular Volume 87 fL (79-100) Mean Corpuscular Hemoglobin 29 pg (25-35) Mean Corpuscular Hemoglobin Concent 34 g/dL (31-37) Red Cell Distribution Width 13.2 % (11.5-14.5) Platelet Count 203 x10^3/uL (140-400) Neutrophils (%) (Auto) 60 % (31-73) Lymphocytes (%) (Auto) 29 % (24-48) Monocytes (%) (Auto) 8 % (0-9) Eosinophils (%) (Auto) 3 % (0-3) Basophils (%) (Auto) 1 % (0-3) Neutrophils # (Auto) 8.9 x10^3/uL (1.8-7.7) H Lymphocytes # (Auto) 4.3 x10^3/uL (1.0-4.8) Monocytes # (Auto) 1.1 x10^3/uL (0.0-1.1) Eosinophils # (Auto) 0.4 x10^3/uL (0.0-0.7) Basophils # (Auto) 0.1 x10^3/uL (0.0-0.2) Laboratory Tests 09/09/21 17:26 (BRE HOUSTON MD) EKG EKG Sinus rhythm, rate 88, no acute ST elevation or depression, [place] 140, QRS 90, QTc 424, EP interpretation. Nonischemic tracing, intervals appropriate. (BRE HOUSTON MD) Radiology/Procedures Radiology/Procedures [] (BRE HOUSTON MD) Course & Med Decision Making Course & Med Decision Making 66-year-old gentleman presenting for reevaluation of chronic shortness of breath and all-over body pain. Vital signs and clinical examination are reassuring here. Will check labs and EKG and chest x-ray and will give oral pain medication dose. We will then reevaluate. 1800: Transition of care at this time to Dr. Estrada pending rest of labs and reevaluation for disposition. (BRE HOUSTON MD) Dragon Disclaimer Dragon Disclaimer This electronic medical record was generated, in whole or in part, using a voice recognition dictation system. (BRE HOUTSON MD) Departure Departure Impression: Primary Impression: Shortness of breath Additional Impression: Chronic pain Disposition: HOME / SELF CARE / HOMELESS Condition: STABLE Referrals: NO PCP (PCP) RENEA MCKAY MD, SABATO MD Patient Instructions: Chronic Pain Management, Shortness of Breath, [id number] Scripts Albuterol Sulfate (PROAIR HFA INHALER) 8.5 Gm Hfa.aer.ad 2 PUFF IH PRN Q4-6HRS PRN for wheezing, #1 INHALER 0 Refills Prov: SHARAN ESTRADA DO 09/09/21 Hydrocodone Bit/Acetaminophen (HYDROCODONE-APAP 5-325 ) 1 Tab Tablet 0.5-1 TAB PO PRN Q6HRS PRN for PAIN, #10 TAB 0 Refills Prov: SHARAN ESTRADA DO 09/09/21 Problem Qualifiers Additional Impression: Chronic pain Chronic pain type: other chronic pain Qualified Codes: G89.29 - Other chronic pain BRE HOUSTON MD Sep 09, 2021 17:58 SHARAN ESTRADA DO Sep 09, 2021 20:15
--- NOTE | 2021-09-09 18:07 | EKG ---
[facility] [address] [place] [address] Test Date: 2021-09-09 Test Time: 16:51:41 Pat Name: SHAHIDA HORTON Department: Room: Gender: M Technical Writer And Editor: : 1955 Requested By: BRE HOUSTON Order Number: [id number] Reading MD: Measurements Intervals [place] Rate: 88 P: 49 [place]: 140 QRS: -64 QRSD: 90 T: 37 QT: 348 QTc: 424 Interpretive Statements SINUS RHYTHM ABNORMAL LEFT AXIS DEVIATION R-S TRANSITION ZONE IN V LEADS DISPLACED TO THE LEFT QRS(T) CONTOUR ABNORMALITY CONSISTENT WITH INFERIOR INFARCT PROBABLY OLD ABNORMAL ECG RI6.01 No previous ECG available for comparison
[2021-09-09 18:22] LABS: CALCIUM 8.9 mg/dL (8.5-10.1); CREATININE 0.8 mg/dL (0.7-1.3); GFR 97.3; POTASSIUM 4.1 mmol/L (3.5-5.1)
--- NOTE | 2021-09-09 18:23 | RAD ---
AP chest. HISTORY: Short of breath AP view was taken of the chest. Patient's taken a poor inspiration. There is mild pleural thickening on the left unchanged from an old study. There are chronic interstitial changes in the left lung rin lar to an old study from May. There is also mild linear scarring or atelectasis or interstitial change in the right lung base. No new areas of infiltrate are noted. There is not evidence of heart failure. The heart is normal in size. IMPRESSION: 1. Chronic interstitial changes in the lungs. 2. No acute infiltrates. Electronically signed by: Danny Hunter MD (09/09/2021 6:20 PM) [facility]
[2021-09-09 18:28] LABS: ALBUMIN 3.7 g/dL (3.4-5.0); ALBUMIN/GLOBULIN RATIO 0.9 (1.0-1.7); TOTAL BILIRUBIN 0.4 mg/dL (0.2-1.0); TOTAL PROTEIN 7.6 g/dL (6.4-8.2)
[2021-09-09 19:46] VITALS: BP 156/90
[2021-09-09] MEDS ORDERED: HYDR-2761 PO (20:14)
[2021-09-09] MEDS ORDERED: ALBU2.5V8 IH (20:14)
[2021-09-09] MEDS ORDERED: DEXAMETHASONE 4 MG TABLET PO ONE (20:15)
== END 2021-09-09 20:35 | disposition home or self-care (01) ==
LOC: ER 16:18
DX: R06.02 Shortness of breath (principal); G89.29 Other chronic pain; E11.40 Type 2 diabetes mellitus with diabetic neuropathy, unspecified; J44.9 Chronic obstructive pulmonary disease, unspecified; Z87.891 Personal history of nicotine dependence; Z91.041 Radiographic dye allergy status
CPT/HCPCS: 36415; 71045; 80053; 84484; 85025; 93005; 99285-25